=== PATIENT | female | born 1950 | race Caucasian/White ===

== ENCOUNTER 2024-09-13 19:01 | Emergency (ER) | payer OTHER, MEDICARE, SELFPAY ==
--- NOTE | 2024-09-13 19:06 | ED_ITS ---
HPI - General Adult General Chief complaint: Extremity Injury, Lower Stated complaint: left lower leg hematoma Time Seen by Provider: 09/13/24 21:15 Source: patient Mode of arrival: ambulatory History of Present Illness ED Provider: mago HPI narrative: Patient's on Coumadin apparently hit her left quintero to a wood rung of the chair yesterday got hematoma complaining of pain in the area also oozing clear fluid from small opening at left lower extremity patient does have a CHF with chronic Related Data Allergies Allergy/AdvReac Type Severity Reaction Status Date / Time acetaminophen [From TYLOX] Allergy Unknown HALLUCINATIONS, Verified 09/13/24 19:09 VOMITING chlorpheniramine Allergy Unknown HIVES Verified 09/13/24 19:09 [From CONTAC] guaifenesin [From CONTAC] Allergy Unknown HIVES Verified 09/13/24 19:09 ibuprofen [From MOTRIN] Allergy Unknown HEART Verified 09/13/24 19:09 PALPITATION From CONTAC Allergy Unknown HIVES Uncoded 07/03/20 16:48 From TYLOX Allergy Unknown HALLUCINATIONS, Uncoded 07/03/20 16:48 VOMITING Review of Systems 2 Review of Systems: Yes all other systems are reviewed and are negative PENDING SALE TO [facility] Social History Social History Advance Directives: No Advance Directives Information Provided: No Physical Exam ED Vital Signs: Vital Signs - 24 hr 09/13/24 19:07 Temperature 98.3 F Pulse Rate 85 Respiratory Rate 18 Blood Pressure 148/68 H Pulse Oximetry 95 Oxygen Delivery Method Room Air BMI result Body Mass Index 22.3 Appearance: Alert. Oriented X3. No acute distress. Eyes: PERRLA, No Nystagmus ENT: Pharynx normal. Oral Mucosa moist Neck: Normal inspection. Neck supple. CVS: Normal heart rate and rhythm. Pulses normal. valve click + Respiratory: No respiratory distress. Equal air entry bilateral, no wheezing/rales/rhonchi Abdomen: Soft and nontender. Bowel sounds are present, no mass palpable, no CVA tenderness Skin: Skin warm and dry. Normal skin color. Normal skin turgor. Extremities: 2+ lower extremity edema. No calf tenderness 2 x 2 cm hematoma on left lower extremity Neuro: Oriented X 3. No motor deficit. No sensory deficit.No cerebellar signs , cranial nerves II-XII intact Course Course Course Narrative: This is a rapid medical exam performed by Daniel Ring NP: Additional HPI, ROS, PE not included below will be deferred to primary provider. Patient is a 73-year-old female with history of afib on warfarin, CHF presenting to the ED with complaint of hematoma to left lower leg. States she hit her left quintero on a wooden chair rung yesterday which caused the hematoma. Complains of pain to the area, states it feels like it's going to burst. Also has pinpoint puncture wound to medial aspect of left ankle draining clear fluid. Plan: labs Medical Decision Making Medical Decision Making MDM Narrative: Small hematoma to left lower extremity on Coumadin will puncture was done and small amount of blood was removed pressure dressing applied patient felt better Lab Data [facility] Lab Attestation statement: I reviewed the patient's lab results. 09/13/24 19:18 09/13/24 19:18 Labs: Lab Results 09/13/24 Range/Units 19:18 WBC 7.5 (4.8-10.8) X10*3/uL RBC 3.92 L (4.20-5.50) X10*6/uL Hgb 12.0 (12.0-16.0) g/dl Hct 36.7 L (37.0-47.0) % MCV 93.6 (80.0-98.0) fL MCH 30.6 (27.0-33.0) pg MCHC 32.7 (31.0-35.0) g/dl RDW 21.9 H (11.0-16.0) % Plt Count 288 (160-400) X10*3/uL MPV 10.6 (9.4-12.3) fL Immature Gran % (Auto) 0.1 (0.0-0.4) % Neut % (Auto) 67.7 (45-73) % Lymph % (Auto) 19.9 L (20-40) % [place] % (Auto) 9.2 (2-11) % Eos % (Auto) 2.3 (0-4) % Baso % (Auto) 0.8 (0-2) % Lymph # (Auto) 1.5 (1.2-4.9) X10*3/uL [place] # (Auto) 0.7 (0.1-1.2) X10*3/uL Eos # (Auto) 0.2 (0.0-0.4) X10*3/uL Baso # (Auto) 0.1 (0.0-0.2) X10*3/uL Abs Immat Gran (auto) 0.01 (0.00-0.03) X10*3/uL Absolute Neuts (auto) 5.1 (2.0-8.3) x10*3/uL Absolute Nucleated RBC 0.000 (0.0-0.012) X10*3/uL Nucleated RBC % (auto) 0.0 (0.0-0.2) /100WBC PT 32.1 H (10.9-12.4) SEC INR 2.7 H (0.9-1.1) APTT 41.4 H (26.0-36.8) SEC Sodium 144 (135-145) mmol/L Potassium 3.7 (3.3-5.1) mmol/L Chloride 102 (96-108) mmol/L Carbon Dioxide 32 H (22-29) mmol/L Anion Gap 14 (12-20) BUN 14 (9-16) mg/dL Creatinine 0.88 (0.5-1.4) mg/dL Estim Creat Clear Calc 50.6 Estimated GFR > 60 Random Glucose 124 H (60-115) mg/dL Calcium 9.9 (8.4-10.2) mg/dL Total Bilirubin 0.5 (0.0-1.0) mg/dL AST 36 H (5-31) U/L ALT 37 H (0-31) U/L Alkaline Phosphatase 70 (39-117) U/L Total Protein 7.5 (6.5-8.0) g/dL Albumin 4.6 (3.5-5.0) g/dL Discharge Plan Discharge Clinical Impression: Hematoma Patient Disposition: Home, Self-Care Instructions: Hematoma (ED) Additional Instructions: Local care as advised Apply compression dressing Keep your left leg elevated Print Language: Welsh
[2024-09-13 19:07] VITALS: BP 148/68; PULSE 85; RESP 18; TEMP 36.8; O2SAT 95; BMI 22.3
[2024-09-13 19:22] LABS: MANUAL DIFF FLAG NO
[2024-09-13 19:37] LABS: Alanine Aminotransferase 37 U/L (0-31); Albumin Level 4.6 g/dL (3.5-5.0); Alkaline Phosphatase 70 U/L (39-117); Anion Gap 14 (12-20); Aspartate Amino Transferase 36 U/L (5-31); Bilirubin Total 0.5 mg/dL (0.0-1.0); Blood Urea Nitrogen 14 mg/dL (9-16); Calcium 9.9 mg/dL (8.4-10.2); Carbon Dioxide 32 mmol/L (22-29); Chloride 102 mmol/L (96-108); Creatinine Clr Calc Pharmacy 50.6; Estimated Glomerular Filt Rate > 60; Glucose Random 124 mg/dL (60-115); Potassium 3.7 mmol/L (3.3-5.1); Sodium 144 mmol/L (135-145); Total Protein 7.5 g/dL (6.5-8.0)
[2024-09-13 19:45] LABS: INTERNATIONAL NORM RATIO 2.7 (0.9-1.1); Prothrombin Time 32.1 SEC (10.9-12.4)
[2024-09-13 19:47] LABS: Basophils Absolute Auto 0.1 X10*3/uL (0.0-0.2); Basophils Percent Auto 0.8 % (0-2); Eosinophils Absolute Auto 0.2 X10*3/uL (0.0-0.4); Eosinophils Percent Auto 2.3 % (0-4); Hematocrit 36.7 % (37.0-47.0); Imm Gran Abs Auto 0.01 X10*3/uL (0.00-0.03); Imm Gran Pct Auto 0.1 % (0.0-0.4); Lymphocytes Absolute Auto 1.5 X10*3/uL (1.2-4.9); Lymphocytes Percent Auto 19.9 % (20-40); Mean Corpuscular HGB Conc 32.7 g/dl (31.0-35.0); Mean Corpuscular Hemoglobin 30.6 pg (27.0-33.0); Mean Corpuscular Volume 93.6 fL (80.0-98.0); Mean Platelet Volume 10.6 fL (9.4-12.3); Monocytes Absolute Auto 0.7 X10*3/uL (0.1-1.2); Monocytes Percent Auto 9.2 % (2-11); Neutrophils Absolute Auto 5.1 x10*3/uL (2.0-8.3); Neutrophils Percent Auto 67.7 % (45-73); Platelet Count 288 X10*3/uL (160-400); Red Blood Count 3.92 X10*6/uL (4.20-5.50); Red Cell Distribution Width 21.9 % (11.0-16.0); White Blood Count 7.5 X10*3/uL (4.8-10.8)
[2024-09-13 19:48] LABS: Partial Thromboplastin Time 41.4 SEC (26.0-36.8)
[2024-09-13 22:11] VITALS: BP 128/70; PULSE 95; RESP 16; TEMP 36.9; O2SAT 94
[2024-09-13 22:25] VITALS: BP 128/70; PULSE 95; RESP 16; TEMP 36.9; O2SAT 94
== END 2024-09-13 22:26 | disposition home or self-care (01) ==
PROVIDERS: Registered Nurse Emergency; Emergency Provider Internal Medicine
DX: S80.12XA Contusion of left lower leg, initial encounter (principal); W22.03XA Walked into furniture, initial encounter; R60.0 Localized edema; Y93.9 Activity, unspecified; Y92.039 Unspecified place in apartment as the place of occurrence of the external cause; Y99.9 Unspecified external cause status
CPT/HCPCS: 36415; 80053; 85025; 85610; 85730; 99283

== ENCOUNTER 2024-10-03 12:54 | Emergency (ER) | payer OTHER, MEDICARE, SELFPAY ==
--- NOTE | ~2024-10-03 | US_ITS ---
EXAMINATION: US TRIPLEX LOWER EXTREMITY, LEFT CLINICAL INFORMATION: Left leg edema, infection, rule out DVT COMPARISON: None available. TECHNIQUE: Color-flow triplex imaging with spectral analysis and compression Doppler were performed on the left lower extremity. FINDINGS: Respiratory variation, normal compression and augmented flow are noted throughout the left lower extremity. The visualized common femoral vein, superficial femoral vein, profunda femoral vein, popliteal vein and midcalf peroneal and posterior tibial venous segments show no evidence of deep venous thrombosis. There is no Mancilla's cyst. US/US venous duplex LE LT IMPRESSION: No evidence of deep venous thrombosis involving the left lower extremity. Electronically signed by: Bronson Shepherd MD 10/03/2024 04:21 PM EST
--- NOTE | 2024-10-03 12:57 | ED_ITS ---
HPI - General Adult General Chief complaint: Skin/Abscess/Foreign Body Stated complaint: L Leg Infection Nausea Not Feeling Well Time Seen by Provider: 10/03/24 14:35 Source: patient Limitations: no limitations History of Present Illness ED Provider: Susy Sharp PA-C HPI narrative: 73-year-old female with a history of AFib, artificial valve replacement of the mitral valve and aortic valve, on Coumadin, systolic heart failure, hypertension, hyperlipidemia and osteoarthritis, presents with left lower extremity swelling x2 days. Patient states she bumped her quintero on Thanksgiving, she developed a hematoma. Over the past 2 days, the hematoma ruptured, and she has developed extensive redness over the quintero and calf. Patient states she feels as if she has a fever, but when she checks her temperature it is normal. Related Data Previous Rx's ?Medication ?Instructions ?Recorded doxycycline hyclate 100 mg capsule 100 mg PO BID #14 caps 10/03/24 Allergies Allergy/AdvReac Type Severity Reaction Status Date / Time acetaminophen [From TYLOX] Allergy Unknown HALLUCINATIONS, Verified 10/03/24 13:06 VOMITING chlorpheniramine Allergy Unknown HIVES Verified 10/03/24 13:06 [From CONTAC] guaifenesin [From CONTAC] Allergy Unknown HIVES Verified 10/03/24 13:06 ibuprofen [From MOTRIN] Allergy Unknown HEART Verified 10/03/24 13:06 PALPITATION From CONTAC Allergy Unknown HIVES Uncoded 07/03/20 16:48 From TYLOX Allergy Unknown HALLUCINATIONS, Uncoded 07/03/20 16:48 VOMITING Review of Systems 2 Review of Systems: Yes all other systems are reviewed and are negative Constitutional: Constitutional: Reports chills, Denies fatigue and Reports fever(s) Cardiovascular: Cardiovascular: Denies chest pain and Denies dyspnea Respiratory: Respiratory: Denies dyspnea Musculoskeletal: Musculoskeletal: Denies arthralgias, Denies joint swelling, Denies numbness and Denies tingling Neurologic: Denies numbness and Denies tingling Endocrine: Endocrine: Denies fatigue PMFSH Past Medical History Attestation statement: The following information was validated with the patient. Social History Social History Smoked in Last 30 Days: No Use of substances other than those prescribed or required for medical reasons: No Advance Directives: No Advance Directives Information Provided: Yes Do you have a plan to hurt others: No Plan Physical Exam ED Vital Signs: Vital Signs - 24 hr 10/03/24 12:59 10/03/24 15:19 10/03/24 17:39 Temperature 98.1 F 98.4 F Pulse Rate 64 52 52 Respiratory Rate 16 16 18 Blood Pressure 160/80 H 140/81 H 135/78 Pulse Oximetry 96 94 94 Oxygen Delivery Method Room Air Room Air Room Air BMI result Body Mass Index 22.4 Const Other: Alert, well-appearing Orientation/consciousness: patient oriented x3 Resp Other: Nonlabored respirations Cardio Other: Pending edema noted bilaterally, left greater than right Skin Other: Warm dry no rash Neuro General: patient oriented x3, no focal motor deficits and CN's II-XI intact bilaterally Extrem Other: Erythema and warmth noted over the left lower extremity from the ankle to just inferior to the knee, the hematomas no longer present, the skin looks somewhat ulcerated, no active bleeding. Psych Other: Calm cooperative Course Course Course Narrative: RME, this is a rapid medical exam performed by Geovani Owens please refer to primary provider for complete H&P- 73-year-old female with past medical history significant for atrial fibrillation maintained on Coumadin presents for evaluation of left leg swelling and redness. She was seen here a few weeks ago due to a hematoma. She had this drained. She has had increasing pain, swelling and redness since yesterday to the left lower extremity. She does admit that she has been picking at the wounds to the left lower leg. She reports subjective fevers and chills as well as nausea. On exam the left lower extremity is markedly erythematous with some edema. Plan for labs including blood cultures and lactic acid. Medications Administered Discontinued Medications Generic Name Dose Route Start Last Admin Trade Name Freq PRN Reason Stop Dose Admin Doxycycline Hyclate 100 mg/ 250 mls @ 166.67 mls/hr 10/03/24 14:42 10/03/24 16:51 Sodium Chloride IV 10/03/24 16:11 Infused ONCE ONE Infusion Lidocaine/Epinephrine 10 ml 10/03/24 17:37 10/03/24 18:00 Lidocaine Hcl 1%/Epi 1:100,000 10 Ml Vial INFILTRATI 10/03/24 17:38 10 ml ONCE ONE Administration Procedures Abscess I/D Site: lower extremity Side (if applicable): left Sedation/analgesia: none Local Anesthetic: lidocaine 1% and with epi Amount of anesthesia used (mL): 10 Technique: incised with blade and ultrasound guided Amount of fluid expressed (mL): 2 Sent for culture/gram staining?: No Irrigation: No Packing used?: iodoform Medical Decision Making Medical Decision Making MDM Narrative: 73-year-old female with a history of AFib, artificial valve replacement of the mitral valve and aortic valve, on Coumadin, systolic heart failure, hypertension, hyperlipidemia and osteoarthritis, presents with left lower extremity swelling x2 days. Patient states she bumped her quintero on Thanksgiving, she developed a hematoma. Over the past 2 days, the hematoma ruptured, and she has developed extensive redness over the quintero and calf. Patient states she feels as if she has a fever, but when she checks her temperature it is normal. Problem: Anticoagulation, History: Per patient I have considered the following differential diagnoses: Cellulitis, purulent cellulitis, osteomyelitis, DVT Plan: We will obtain a DVT, she had a traumatic injury and now has an infection. I will view the site of the prior hematoma with bedside ultrasound to see if there is a focal abscess to be drained, I have low suspicion for this. Screening labs including blood cultures were already obtained, we will give her doxycycline. I am adding on inflammatory markers and a lactic acid. The wound is superficial, I have low suspicion for osteomyelitis, she is not immunocompromised or diabetic, I do not believe we need to obtain dedicated x- rays to rule this out. I have viewed the limb with the ultrasound, there was a fluid collection, unclear if it is abscess versus hematoma, we will I and D. I have independently reviewed the following tests: Labs: No leukocytosis, not anemic, no electrolyte abnormality, lactic acid 0.7, CRP 2.23, ESR DVT left lower extremity study: US/US venous duplex LE LT IMPRESSION: No evidence of deep venous thrombosis involving the left lower extremity. Lab Data 10/03/24 13:21 10/03/24 13:21 Labs: Lab Results 10/03/24 10/03/24 10/03/24 Range/Units 13:21 15:08 15:09 WBC 9.5 (4.8-10.8) X10*3/uL RBC 3.72 L (4.20-5.50) X10*6/uL Hgb 11.9 L (12.0-16.0) g/dl Hct 36.3 L (37.0-47.0) % MCV 97.6 (80.0-98.0) fL MCH 32.0 (27.0-33.0) pg MCHC 32.8 (31.0-35.0) g/dl RDW 18.7 H (11.0-16.0) % Plt Count 279 (160-400) X10*3/uL MPV 10.7 (9.4-12.3) fL Immature Gran % (Auto) 0.4 (0.0-0.4) % Neut % (Auto) 80.9 H (45-73) % Lymph % (Auto) 11.4 L (20-40) % [place] % (Auto) 6.0 (2-11) % Eos % (Auto) 0.8 (0-4) % Baso % (Auto) 0.5 (0-2) % Lymph # (Auto) 1.1 L (1.2-4.9) X10*3/uL [place] # (Auto) 0.6 (0.1-1.2) X10*3/uL Eos # (Auto) 0.1 (0.0-0.4) X10*3/uL Baso # (Auto) 0.1 (0.0-0.2) X10*3/uL Abs Immat Gran (auto) 0.04 H (0.00-0.03) X10*3/uL Absolute Neuts (auto) 7.7 (2.0-8.3) x10*3/uL Absolute Nucleated RBC 0.000 (0.0-0.012) X10*3/uL Nucleated RBC % (auto) 0.0 (0.0-0.2) /100WBC ESR 10 (0-20) MM/HR PT 23.5 H D (10.9-12.4) SEC INR 2.0 H (0.9-1.1) Sodium 141 (135-145) mmol/L Potassium 3.8 (3.3-5.1) mmol/L Chloride 102 (96-108) mmol/L Carbon Dioxide 33 H (22-29) mmol/L Anion Gap 10 L (12-20) BUN 13 (9-16) mg/dL Creatinine 0.63 (0.5-1.4) mg/dL Estim Creat Clear Calc 70.7 Estimated GFR > 60 Random Glucose 106 (60-115) mg/dL Lactic Acid 0.7 0.7 (0.5-2.0) mmol/L Calcium 8.9 D (8.4-10.2) mg/dL Total Bilirubin 0.6 (0.0-1.0) mg/dL AST 37 H (5-31) U/L ALT 36 H (0-31) U/L Alkaline Phosphatase 80 (39-117) U/L C-Reactive Protein 2.23 H (< or = 0.50) mg/dL Total Protein 7.9 (6.5-8.0) g/dL Albumin 4.6 (3.5-5.0) g/dL Lipase 16 (8-78) U/L Influenza Type A (PCR) NEGATIVE (Negative) Influenza Type B (PCR) NEGATIVE (Negative) RSV RNA Qual (PCR) NEGATIVE (Negative) SARS-CoV-2 RNA (RT-PCR) NEGATIVE (Negative) Discharge Plan Discharge Clinical Impression: Cellulitis of left leg Patient Disposition: Home, Self-Care Instructions: Cellulitis (ED) Additional Instructions: You are being treated for cellulitis. See home care instructions. Keep the site clean and dry. Take the doxycycline as directed. The area every you have the hematoma was incised and drained, there was concerned for underlying abscess formation, it was more hematoma. Return precaution for the onset of fever, swelling at the hematoma site, pus draining from the site, or red line tracking up your leg. Otherwise, follow up with your primary care provider next week for a wound check. Prescriptions: New doxycycline hyclate 100 mg capsule 100 mg PO BID Qty: 14 0RF Print Language: Romanian
[2024-10-03 12:59] VITALS: BP 160/80; PULSE 64; RESP 16; TEMP 36.7; O2SAT 96; BMI 22.4
[2024-10-03 13:33] LABS: MANUAL DIFF FLAG NO
[2024-10-03 13:40] LABS: Basophils Absolute Auto 0.1 X10*3/uL (0.0-0.2); Basophils Percent Auto 0.5 % (0-2); Eosinophils Absolute Auto 0.1 X10*3/uL (0.0-0.4); Eosinophils Percent Auto 0.8 % (0-4); Hematocrit 36.3 % (37.0-47.0); Hemoglobin 11.9 g/dl (12.0-16.0); Imm Gran Abs Auto 0.04 X10*3/uL (0.00-0.03); Imm Gran Pct Auto 0.4 % (0.0-0.4); Lymphocytes Absolute Auto 1.1 X10*3/uL (1.2-4.9); Lymphocytes Percent Auto 11.4 % (20-40); Mean Corpuscular HGB Conc 32.8 g/dl (31.0-35.0); Mean Corpuscular Volume 97.6 fL (80.0-98.0); Mean Platelet Volume 10.7 fL (9.4-12.3); Monocytes Absolute Auto 0.6 X10*3/uL (0.1-1.2); Neutrophils Absolute Auto 7.7 x10*3/uL (2.0-8.3); Neutrophils Percent Auto 80.9 % (45-73); Platelet Count 279 X10*3/uL (160-400); Red Blood Count 3.72 X10*6/uL (4.20-5.50); Red Cell Distribution Width 18.7 % (11.0-16.0); White Blood Count 9.5 X10*3/uL (4.8-10.8)
[2024-10-03 13:43] LABS: Prothrombin Time 23.5 SEC (10.9-12.4)
[2024-10-03 13:47] LABS: Lactic Acid 0.7 mmol/L (0.5-2.0)
[2024-10-03 13:52] LABS: Alanine Aminotransferase 36 U/L (0-31); Albumin Level 4.6 g/dL (3.5-5.0); Alkaline Phosphatase 80 U/L (39-117); Anion Gap 10 (12-20); Aspartate Amino Transferase 37 U/L (5-31); Bilirubin Total 0.6 mg/dL (0.0-1.0); Blood Urea Nitrogen 13 mg/dL (9-16); Calcium 8.9 mg/dL (8.4-10.2); Carbon Dioxide 33 mmol/L (22-29); Chloride 102 mmol/L (96-108); Creatinine Clr Calc Pharmacy 70.7; Estimated Glomerular Filt Rate > 60; Glucose Random 106 mg/dL (60-115); Lipase 16 U/L (8-78); Potassium 3.8 mmol/L (3.3-5.1); Sodium 141 mmol/L (135-145); Total Protein 7.9 g/dL (6.5-8.0)
[2024-10-03 14:23] LABS: Influenza A PCR NEGATIVE (Negative); Influenza B PCR NEGATIVE (Negative); Resp Syncy Virus RNA Qual PCR NEGATIVE (Negative); SARS COV2 PCR INHOUSE NEGATIVE (Negative)
[2024-10-03] MEDS: Doxycycline Hyclate 100 MG in 0.9 % Sodium Chloride 250 ML 166.67 MG IV (15:16)
[2024-10-03 15:19] VITALS: BP 140/81; PULSE 52; RESP 16; O2SAT 94
[2024-10-03 15:31] LABS: C Reactive Protein 2.23 mg/dL (< or = 0.50)
[2024-10-03 15:33] LABS: Lactic Acid 0.7 mmol/L (0.5-2.0)
--- NOTE | 2024-10-03 15:51 | PC.NURSE ---
pt is alert and oriented, skin pwd, respirations even and unlabored, pt reports that the day before Thanksgiving hit her left lower leg on a chair-had a large hematome to that leg-pt is taking blood thinners(Coumadin) was picking at the scab and now there is a small wound discoloration/redness to the entire leg all the way up to the knee, warm to touch and swelling, pt states its not painful at rest but once starts moving the pain starts,
[2024-10-03 16:37] LABS: Erythrocyte Sedimentation Rate 10 MM/HR (0-20)
[2024-10-03 17:39] VITALS: BP 135/78; PULSE 52; RESP 18; TEMP 36.9; O2SAT 94
[2024-10-03] MEDS: Lidocaine HCl 1%/Epi 1:100,000 10 ML VIAL INFILTRATI (18:00)
[2024-10-03 18:12] VITALS: BP 131/60; PULSE 57; RESP 20; TEMP 36.9; O2SAT 94
[2024-10-03 18:42] VITALS: BP 131/60; PULSE 57; RESP 20; TEMP 36.9; O2SAT 94
== END 2024-10-03 18:42 | disposition home or self-care (01) ==
PROVIDERS: Physician Assistant; Physician Assistant Medical; Emergency Provider Emergency Medicine; PCP Internal Medicine
DX: L03.116 Cellulitis of left lower limb (principal); R60.0 Localized edema; R50.9 Fever, unspecified; Z03.818 Encounter for observation for suspected exposure to other biological agents ruled out; Z79.899 Other long term (current) drug therapy
CPT/HCPCS: 0241U; 10061; 80053; 83605; 83690; 85025; 85610; 85652; 86140; 87040; 93971; 96365; 96366; 99284; J2004

== ENCOUNTER 2024-10-04 12:17 | Emergency (ER) | payer OTHER, MEDICARE, SELFPAY ==
[2024-10-04 12:19] VITALS: BP 165/66; PULSE 66; RESP 18; TEMP 36.8; O2SAT 95; BMI 22.3
--- NOTE | 2024-10-04 12:20 | ED.WOUNDLAC ---
HPI - Wound/Laceration General Chief Complaint: General Medical Stated Complaint: Seen yesterday - told to return Time Seen by Provider: 10/04/24 12:48 Source: patient and RN notes reviewed Mode of arrival: ambulatory Limitations: no limitations History of Present Illness ED Provider: Park Thomas PA-C HPI narrative: This is a 73-year-old female, with a history of AFib anticoagulated on Coumadin, artificial valve replacement of the mitral valve, aortic valve, systolic heart failure, hypertension, hyperlipidemia, and osteoarthritis, who presents emergency department due to left lower leg wound. Patient was initially seen after bumping her left lower leg on . She states that she had a hematoma after bumping her leg. This area was drained on September 13, 2024. She states that the hematoma then again filled up with fluid. She states that 2 days ago she had attempted to drain the hematoma herself. She states that yesterday she noticed increased swelling, pain, and redness of her leg therefore she was seen in the emergency department. While in the emergency room, she had an ultrasound which revealed no DVT. She also had an incision and drainage of this hematoma and was packed. She states that this morning she awoke in her dressing was saturated with blood, and did not have any other products to help dressed the wound. She states that the redness has improved since yesterday. She states that she took her 1st dose of doxycycline this morning. Her INR levels are managed through [facility]. She denies any fevers or chills. Denies any increased pain. She states that the pain has improved since yesterday. No other complaints or concerns at this time. Onset (ago): day(s) Place: home Patient tetanus UTD: Yes Context: accidental Associated symptoms: none Related Data Previous Rx's ?Medication ?Instructions ?Recorded doxycycline hyclate 100 mg capsule 100 mg PO BID #14 caps 10/03/24 Allergies Allergy/AdvReac Type Severity Reaction Status Date / Time acetaminophen [From TYLOX] Allergy Unknown HALLUCINATIONS, Verified 10/04/24 12:25 VOMITING chlorpheniramine Allergy Unknown HIVES Verified 10/04/24 12:25 [From CONTAC] guaifenesin [From CONTAC] Allergy Unknown HIVES Verified 10/04/24 12:25 ibuprofen [From MOTRIN] Allergy Unknown HEART Verified 10/04/24 12:25 PALPITATION From CONTAC Allergy Unknown HIVES Uncoded 07/03/20 16:48 From TYLOX Allergy Unknown HALLUCINATIONS, Uncoded 07/03/20 16:48 VOMITING Review of Systems Review of Systems: Yes all other systems are reviewed and are negative Constitutional: Constitutional: Reports as per [facility] Social History Social History Advance Directives: No Advance Directives Information Provided: Yes Do you have a plan to hurt others: No Plan Physical Exam Vital Signs: Vital Signs: Last Vital Signs Temp 98.2 F 10/04/24 13:38 Pulse 66 10/04/24 13:38 Resp 18 10/04/24 13:38 BP 165/66 H 10/04/24 13:38 Pulse Ox 95 10/04/24 13:38 O2 Del Method Room Air 10/04/24 13:38 BMI result Body Mass Index 22.3 Const: General: cooperative, comfortable and no acute distress Orientation/consciousness: patient oriented x3 Limitations: no limitations HEENT: Head: Yes normal to inspection, Yes normocephalic and Yes atraumatic Ears: hearing grossly normal bilaterally General nose exam: Normal external nose present Face and sinus: Yes normal facial exam Mouth: Normal oral and palatal mucosa present, oropharynx normal and moist mucous membranes Throat: Yes posterior oropharynx normal Eyes: General: appearance normal, both eyes and all related structures Eyelids: Yes eyelids normal Conjunctivae: conjunctivae normal Sclerae: sclerae normal Pupils: Equal, round and reactive pupils present EOM: EOMs intact bilaterally Neck: Neck: Yes normal visual inspection, Yes full ROM and Yes no lymphadenopathy Lymphatic: no lymphadenopathy noted Chest: Chest palpation & inspection: normal inspection of the chest Resp: Effort & Inspection: normal respiratory effort and able to speak in complete sentences Auscultation: clear to auscultation bilaterally, no crackles, no rales, no rhonchi and no wheezes Cardio: Rate: regular rate Rhythm: regular rhythm Heart sounds: S1 normal heart sound present and S2 normal heart sound present GI: Inspection: Yes normal to inspection Skin: General skin exam: no rashes or lesions noted Trauma: no lacerations or abrasions Wounds: no wounds Neuro: General: patient oriented x3 and moves all extremities Cranial nerves: Yes Equal, round and reactive pupils present Extrem: Other: Left leg, with mild warmth, scant erythema noted, nontender surrounding wound, packing in place. No excessive bleeding or drainage from the wound. No calf tenderness. Leg is well perfused. Strong DP pulse General: Yes normal to inspection Right upper extremity: normal to inspection Left upper extremity: normal to inspection Right lower extremity: normal to inspection Left lower extremity: normal to inspection Course Course Course Narrative: This is a Rapid Medical Examination (RME) performed by Mike Gomez PA-C in triage. Full HPI, ROS, assessment and treatment plan per primary provider in the Main ED. 73-year-old female with a history of AFib, artificial valve replacement of the mitral valve and aortic valve, on Coumadin, systolic heart failure, hypertension, hyperlipidemia and osteoarthritis who was seen here yesterday for LLE cellulitis sent home with doxycycline and packing in a wound presents back for bleeding and watery drainage from the wound on her leg. saturated dressing w/ bloody/serous drainage, dressing changed in triage, packing in place. ABD applied w/ kerlex Plan: labs, wound check Medical Decision Making Medical Decision Making [facility] Narrative: This is a 73-year-old female who presents emergency department for evaluation of wound. On arrival, patient mildly hypertensive at 165/66, all other vital signs within normal limits. Labs were performed, she has no leukocytosis, H&H is 11/33.6, similar to previous. INR is 2.1 today, patient states that her goal is between 2.5 and 3.5. This is managed through her [facility] through [facility]. She will call them today. AST and ALT are slightly elevated which is similar to previous. Wound appears to be well healed, patient states that the area of redness has improved. She is feeling better however reports increased drainage to the area and she did not have any products to cover wound with. Patient's wound was redressed, she was given products to help dressed the wound, she will return here in 24-48 hours for wound check as she feels more comfortable with wick removal rather than doing it herself. She was given strict return precautions. Patient stable for discharge. Differential Diagnosis Differential Diagnoses: The differential diagnosis associated with the presentation includes Cellulitis, laceration, wound check, abscess Lab Data [facility] Lab Attestation statement: I reviewed the patient's lab results. See [facility] 10/04/24 12:31 10/04/24 12:31 Labs: Lab Results 10/04/24 Range/Units 12:31 WBC 8.4 (4.8-10.8) X10*3/uL RBC 3.47 L (4.20-5.50) X10*6/uL Hgb 11.0 L (12.0-16.0) g/dl Hct 33.6 L (37.0-47.0) % MCV 96.8 (80.0-98.0) fL MCH 31.7 (27.0-33.0) pg MCHC 32.7 (31.0-35.0) g/dl RDW 18.4 H (11.0-16.0) % Plt Count 249 (160-400) X10*3/uL MPV 10.4 (9.4-12.3) fL Immature Gran % (Auto) 0.2 (0.0-0.4) % Neut % (Auto) 73.9 H (45-73) % Lymph % (Auto) 15.1 L (20-40) % [place] % (Auto) 8.4 (2-11) % Eos % (Auto) 1.7 (0-4) % Baso % (Auto) 0.7 (0-2) % Lymph # (Auto) 1.3 (1.2-4.9) X10*3/uL [place] # (Auto) 0.7 (0.1-1.2) X10*3/uL Eos # (Auto) 0.1 (0.0-0.4) X10*3/uL Baso # (Auto) 0.1 (0.0-0.2) X10*3/uL Abs Immat Gran (auto) 0.02 (0.00-0.03) X10*3/uL Absolute Neuts (auto) 6.2 (2.0-8.3) x10*3/uL Absolute Nucleated RBC 0.000 (0.0-0.012) X10*3/uL Nucleated RBC % (auto) 0.0 (0.0-0.2) /100WBC PT 24.8 H (10.9-12.4) SEC INR 2.1 H (0.9-1.1) Sodium 141 (135-145) mmol/L Potassium 4.1 (3.3-5.1) mmol/L Chloride 105 (96-108) mmol/L Carbon Dioxide 30 H (22-29) mmol/L Anion Gap 10 L (12-20) BUN 9 (9-16) mg/dL Creatinine 0.69 (0.5-1.4) mg/dL Estim Creat Clear Calc 64.5 Estimated GFR > 60 Random Glucose 109 (60-115) mg/dL Calcium 9.5 D (8.4-10.2) mg/dL Magnesium 2.2 (1.6-2.6) mg/dL Total Bilirubin 0.6 (0.0-1.0) mg/dL Direct Bilirubin 0.3 (0.0-0.5) mg/dL AST 38 H (5-31) U/L ALT 36 H (0-31) U/L Alkaline Phosphatase 71 (39-117) U/L Total Protein 7.2 (6.5-8.0) g/dL Albumin 4.3 (3.5-5.0) g/dL Discharge Plan Discharge Clinical Impression: Visit for wound check Patient Disposition: Home, Self-Care Instructions: Acute Wounds (ED) Additional Instructions: You were seen in the emergency department due to a wound check. Please keep area clean and dry. We had given you products to use if this continues to drain. If you have increased redness, swelling, fevers, chills, excessive bleeding coming from the wound, please seek emergent care. Please follow-up for a wound check in 1-2 days, we can move your packing then. Your INR was 2.1 today, please follow-up with the [facility]mad[facility] for recommendations. If any new or worsening symptoms occur, please seek emergent care. Prescriptions: No Action doxycycline hyclate 100 mg capsule 100 mg PO BID Qty: 14 0RF Interventions: ED Discharge Assessment Last Done: 10/04/24 13:38 Print Language: Kazakh
[2024-10-04 12:37] LABS: MANUAL DIFF FLAG NO
[2024-10-04 12:38] LABS: Basophils Absolute Auto 0.1 X10*3/uL (0.0-0.2); Basophils Percent Auto 0.7 % (0-2); Eosinophils Absolute Auto 0.1 X10*3/uL (0.0-0.4); Eosinophils Percent Auto 1.7 % (0-4); Hematocrit 33.6 % (37.0-47.0); Imm Gran Abs Auto 0.02 X10*3/uL (0.00-0.03); Imm Gran Pct Auto 0.2 % (0.0-0.4); Lymphocytes Absolute Auto 1.3 X10*3/uL (1.2-4.9); Lymphocytes Percent Auto 15.1 % (20-40); Mean Corpuscular HGB Conc 32.7 g/dl (31.0-35.0); Mean Corpuscular Hemoglobin 31.7 pg (27.0-33.0); Mean Corpuscular Volume 96.8 fL (80.0-98.0); Mean Platelet Volume 10.4 fL (9.4-12.3); Monocytes Absolute Auto 0.7 X10*3/uL (0.1-1.2); Monocytes Percent Auto 8.4 % (2-11); Neutrophils Absolute Auto 6.2 x10*3/uL (2.0-8.3); Neutrophils Percent Auto 73.9 % (45-73); Platelet Count 249 X10*3/uL (160-400); Red Blood Count 3.47 X10*6/uL (4.20-5.50); Red Cell Distribution Width 18.4 % (11.0-16.0); White Blood Count 8.4 X10*3/uL (4.8-10.8)
[2024-10-04 12:46] LABS: INTERNATIONAL NORM RATIO 2.1 (0.9-1.1); Prothrombin Time 24.8 SEC (10.9-12.4)
[2024-10-04 12:56] LABS: Alanine Aminotransferase 36 U/L (0-31); Albumin Level 4.3 g/dL (3.5-5.0); Alkaline Phosphatase 71 U/L (39-117); Anion Gap 10 (12-20); Aspartate Amino Transferase 38 U/L (5-31); Bilirubin Direct 0.3 mg/dL (0.0-0.5); Bilirubin Total 0.6 mg/dL (0.0-1.0); Blood Urea Nitrogen 9 mg/dL (9-16); Calcium 9.5 mg/dL (8.4-10.2); Carbon Dioxide 30 mmol/L (22-29); Chloride 105 mmol/L (96-108); Creatinine Clr Calc Pharmacy 64.5; Estimated Glomerular Filt Rate > 60; Glucose Random 109 mg/dL (60-115); Magnesium 2.2 mg/dL (1.6-2.6); Potassium 4.1 mmol/L (3.3-5.1); Sodium 141 mmol/L (135-145); Total Protein 7.2 g/dL (6.5-8.0)
[2024-10-04 13:38] VITALS: BP 165/66; PULSE 66; RESP 18; TEMP 36.8; O2SAT 95
== END 2024-10-04 14:11 | disposition home or self-care (01) ==
PROVIDERS: Physician Assistant; Emergency Provider Emergency Medicine Emergency Medical Services; PCP Internal Medicine
DX: Z48.01 Encounter for change or removal of surgical wound dressing (principal); I48.91 Unspecified atrial fibrillation; Z79.01 Long term (current) use of anticoagulants
CPT/HCPCS: 36415; 80048; 80076; 83735; 85025; 85610; 99282; 99283

== ENCOUNTER 2024-10-06 11:08 | Emergency (ER) | payer OTHER, MEDICARE, SELFPAY ==
[2024-10-06 11:17] VITALS: BP 151/82; PULSE 83; RESP 16; TEMP 37.1; O2SAT 96; BMI 22.3
--- NOTE | 2024-10-06 11:19 | ED_ITS ---
HPI - Skin/Abscess/Foreign Bdy General Chief complaint: Wound/Laceration Stated complaint: packing removal Time Seen by Provider: 10/06/24 11:27 Source: patient, RN notes reviewed and old records reviewed Mode of arrival: ambulatory History of Present Illness ED Provider: Dionna Millan PA-C HPI narrative: 73-year-old female with a past medical history AFib on Coumadin, artificial valve replacement of the mitral valve, aortic valve, CHF, HTN, HLD, osteoarthritis, presenting to ED for packing removal and wound check to left lower extremity. Patient initially evaluated in our ED on [facility] s/p sustaining hematoma, area was drained on 09/13 and 10/03. Was then evaluated for wound check on 10/04. Reports compliance with previously prescribed doxycycline. States area overall improved. Denies fever, chills, active drainage, worsening erythema Related Data Previous Rx's ?Medication ?Instructions ?Recorded doxycycline hyclate 100 mg capsule 100 mg PO BID #14 caps 10/03/24 cephalexin 500 mg capsule 500 mg PO QID 7 days #28 caps 10/06/24 Allergies Allergy/AdvReac Type Severity Reaction Status Date / Time acetaminophen [From TYLOX] Allergy Unknown HALLUCINATIONS, Verified 10/06/24 11:20 VOMITING chlorpheniramine Allergy Unknown HIVES Verified 10/06/24 11:20 [From CONTAC] guaifenesin [From CONTAC] Allergy Unknown HIVES Verified 10/06/24 11:20 ibuprofen [From MOTRIN] Allergy Unknown HEART Verified 10/06/24 11:20 PALPITATION From CONTAC Allergy Unknown HIVES Uncoded 10/06/24 11:20 From TYLOX Allergy Unknown HALLUCINATIONS, Uncoded 10/06/24 11:20 VOMITING Review of Systems 2 Review of Systems: Yes all other systems are reviewed and are negative Constitutional: Constitutional: Reports as per [facility] Past Medical History Attestation statement: The following information was validated with the patient. Source: old records reviewed Physical Exam 2 Vital Signs: Vital Signs: Last Vital Signs Temp 98.7 F 10/06/24 11:17 Pulse 83 10/06/24 11:17 Resp 16 10/06/24 11:17 BP 151/82 H 10/06/24 11:17 Pulse Ox 96 10/06/24 11:17 O2 Del Method Room Air 10/06/24 11:17 BMI result Body Mass Index 22.3 Const: General: cooperative, healthy appearing and no acute distress O rientation/consciousness: patient oriented x3 Limitations: no limitations HEENT: Head: Yes normal to inspection and Yes atraumatic Ears: hearing grossly normal bilaterally General nose exam: Normal external nose present Face and sinus: Yes normal facial exam Eyes: General: appearance normal, both eyes and all related structures EOM: EOMs intact bilaterally Neck: Neck: Yes normal visual inspection and Yes no meningeal signs Resp: Effort & Inspection: normal respiratory effort and no respiratory distress Cardio: Rate: regular rate Skin: Other: Please refer to image above. Healing wound, packing removed. Mild surrounding swelling and faint erythema, improving per patient, no warmth. Slight tenderness. No fluctuance/induration or expressible drainage. Neurovascularly intact distally. Rashes: no rashes Neuro: General: patient oriented x3, tone normal and no meningeal signs C ranial nerves: Yes CN's II-XII intact bilaterally Gait exam (Neuro): Normal gait present Extrem: General: Yes normal to inspection Medical Decision Making Medical Decision Making MDM Narrative: 73-year-old female with a past medical history AFib on Coumadin, artificial valve replacement of the mitral valve, aortic valve, CHF, HTN, HLD, osteoarthritis, presenting to ED for packing removal and wound check to left lower extremity. On exam vital signs stable, NAD, nontoxic appearing, physical exam as noted above, please refer to image. Packing removed. Wound appears appropriately healing. Recommended wound care follow-up, continuing previously prescribed doxycycline and will add Keflex to her regimen. Low suspicion for worsening cellulitis or osteomyelitis at this time. No evidence of abscess Please refer to course for remaining clinical decision making, interpretation of labs/imaging results, and discussions with consultants and/or family members. Results discussed with patient including worrisome signs and symptoms and strict return precautions, and when to return to the emergency department. They verbalized understanding and feel safe for discharge at this time. Differential Diagnosis Differential Diagnoses: The differential diagnosis associated with the presentation includes As above Admission/Observation Consideration of admission/observation: Escalation of care including admission/observation considered External Record Review External record reviewed: Inpatient record, Office record, Outpatient record, Prior outpatient labs, Prior outpatient radiology, Primary care record and Outside ED record Tests considered The following testing was considered but not selected: As above Prescription Management I considered prescription management with: Pain Medication and Antibiotic Chronic Conditions Patient?s care impacted by: Other Social Determinants Patient?s care significantly limited by Social Determinants of Health including: Other Social Determinant of Health Procedures Procedure Narrative Procedure Narrative: Wound packing removal: Removed without complication Dressing applied Discharge Plan Discharge Clinical Impression: Abscess packing removal, Visit for wound check Patient Disposition: Home, Self-Care Instructions: Wound Infection (DC), Warm Compress or Soak (ED) Additional Instructions: Continue taking previously prescribed doxycycline In addition start taking Keflex. Finish both antibiotics until completion Change dressing daily Apply warm compresses to the area If area begins to look worse, has increasing redness, swelling, drainage or fever return to the ED immediately Follow up with her doctor as well as care. Call to make an appointment Prescriptions: New cephalexin 500 mg capsule 500 mg PO QID 7 Days Qty: 28 0RF No Action doxycycline hyclate 100 mg capsule 100 mg PO BID Qty: 14 0RF Referrals: [facility] [facility] [Provider Group] Gigi Louie MD [Primary Care Provider] - 2 days Print Language: Sudanese
[2024-10-06 11:38] VITALS: BP 151/82; PULSE 83; RESP 16; TEMP 37.1; O2SAT 96
== END 2024-10-06 11:38 | disposition home or self-care (01) ==
PROVIDERS: Emergency Provider Emergency Medicine Emergency Medical Services; PCP Internal Medicine
DX: Z48.01 Encounter for change or removal of surgical wound dressing (principal); L02.416 Cutaneous abscess of left lower limb
CPT/HCPCS: 99282; 99283

== ENCOUNTER 2024-12-19 11:26 | Outpatient (RCR) | payer MEDICARE, OTHER, SELFPAY | END 2024-12-19 16:00 | disposition home or self-care (01) | LOC: HO.WCC 11:26 | PROVIDERS: PCP Internal Medicine; Visit Provider Surgery | DX: I87.332 Chronic venous hypertension (idiopathic) with ulcer and inflammation of left lower extremity (principal); L97.822 Non-pressure chronic ulcer of other part of left lower leg with fat layer exposed | CPT/HCPCS: 11042; 99211; 99212; 99213 ==

== ENCOUNTER 2025-08-07 12:29 | Emergency (ER) | payer MEDICARE, OTHER, SELFPAY ==
--- NOTE | ~2025-08-07 | XR_ITS ---
EXAMINATION: XR TIBIA AND FIBULA, RIGHT CLINICAL INFORMATION: pain, injury, r/o fx COMPARISON: None available. TECHNIQUE: AP and lateral views of the right tibia and fibula were obtained. FINDINGS: No fracture, dislocation, or suspicious bone lesion. There is normal alignment. The imaged ankle and knee joints appear unremarkable. There is soft tissue swelling in the lower anterior quintero. XR/XR tibia fibula RT 2V IMPRESSION: 1. No acute bony abnormality. 2. Soft tissue swelling lower anterior quintero. Electronically signed by: Sukhwinder Chamberlain MD 08/07/2025 01:05 PM EDT
[2025-08-07 12:41] VITALS: BP 102/70; PULSE 88; RESP 18; TEMP 36.7; O2SAT 93; BMI 20.9
--- NOTE | 2025-08-07 12:43 | ED_ITS ---
HPI - General Adult General Chief complaint: Wound/Laceration Stated complaint: blood clot on leg Time Seen by Provider: 08/07/25 13:41 Source: patient Mode of arrival: ambulatory Limitations: no limitations History of Present Illness ED Provider: Bhavya Antoine PA-C HPI narrative: Patient is a 74 year old assigned female at with a history of atrial fib, mitral valve + aortic valve replacements on coumadin, CHF, HTN, HLD, and OA presenting to the emergency department today with a right lower leg injury. Patient states that 3 days ago she took a basketball hit to her right lower leg and has a persistent bruise to the area that is not getting better. Patient states that she called the wound center and has an appointment with them next week. Patient states that she checks her INR at home every Tuesday and her INR the Tuesday before this incident was within range. Patient denies any other complaints at this time. Related Data Previous Rx's ?Medication ?Instructions ?Recorded doxycycline hyclate 100 mg capsule 100 mg PO BID #14 c aps 10/03/24 cephalexin 500 mg capsule 500 mg PO QID 7 days #28 cap s 10/06/24 Allergies Allergy/AdvReac Type Severity Reaction Status Date / Time acetaminophen (From TYLOX) Allergy Unknown HALLUCINATIONS, Verified 08/07/25 12:46 VOMITING chlorpheniramine (From Allergy Unknown HIVES Verified 08/07/25 12:46 CONTAC) guaifenesin (From CONTAC) Allergy Unknown HIVES Verified 08/07/25 12:46 ibuprofen (From MOTRIN) Allergy Unknown HEART Verified 08/07/25 12:46 PALPITATION From CONTAC Allergy Unknown HIVES Uncoded 10/06/24 11:20 From TYLOX Allergy Unknown HALLUCINATIONS, Uncoded 10/06/24 11:20 VOMITING Review of Systems 2 Constitutional: Constitutional: Reports as per HPI Eyes: Eyes: Reports as per HPI ENT: Reports as per HPI Cardiovascular: Cardiovascular: Reports as per HPI Respiratory: Respiratory: Reports as per HPI Gastrointestinal: Gastrointestinal: Reports as per HPI Genitourinary: Genitourinary: Reports as per HPI Musculoskeletal: Musculoskeletal: Reports as per HPI Integumentary/Breasts: Skin/Breast: Reports as per HPI Neurologic: Reports as per HPI Psychiatric: Psychiatric: Reports as per HPI Endocrine: Endocrine: Reports as per HPI Hematologic/Lymphatic: Hematologic/Lymphatic: Reports as per HPI Allergic/Immunologic: Allergic/Immunologic: Reports as per HPI PMFSH Past Medical History Attestation statement: The following information was validated with the patient. Source: old records reviewed and nursing notes reviewed Social History Social History Advance Directives: No Advance Directives Information Provided: Yes Physical Exam ED Vital Signs: Vital Signs - 24 hr 08/07/25 12:41 08/07/25 14:07 Temperature 98.1 F 98.1 F Pulse Rate 88 88 Respiratory Rate 18 18 Blood Pressure 102/70 102/70 Pulse Oximetry 93 93 Oxygen Delivery Method Room Air BMI result Body Mass Index 20.9 Const General: cooperative, no acute distress, alert and awake Nutritional Appearance: well nourished Orientation/consciousness: patient oriented x3 HENMT Head: Yes normal to inspection and Yes atraumatic Ears: hearing grossly normal bilaterally and external ears normal General nose exam: Normal external nose present, no nasal discharge noted and no epistaxis Face and sinus: Yes normal facial exam, No abrasion and No laceration Mouth: Normal oral and palatal mucosa present, no drooling and no muffled voice Eyes General: appearance normal, both eyes and all related structures Periorbital: periorbital findings normal Eyelids: Yes eyelids normal Conjunctivae: conjunctivae normal Pupils: Equal, round and reactive pupils present EOM: EOMs intact bilaterally Neck Neck: Yes normal visual inspection and Yes full ROM Resp Effort & Inspection: normal respiratory effort and able to speak in complete sentences Neuro General: patient oriented x3, moves all extremities and CN's II-XI intact bilaterally Cranial nerves: Yes Equal, round and reactive pupils present Cognition (Neuro): normal cognition Extrem Other: General: Yes full ROM and Yes capillary refill normal Psych Appearance: grossly normal Mental Status: mental status grossly normal Affect: normal affect Attitude: cooperative Thought process: Normal thought process present Thought content: Normal thought content present Insight: Good insight present (Psych) Course Course Course Narrative: This is a Rapid Medical Examination (RME) performed by Krista Chacon PA-C in triage. Full HPI, ROS, assessment and treatment plan per primary provider in the Main ED. Hx: 74 yo F hx of AFib, artificial valve replacement of the mitral valve and aortic valve, on Coumadin, systolic heart failure, hypertension, hyperlipidemia and osteoarthritis here w/ hematoma to right quintero x5 days after a basketball his her right quintero. feels like the area is about to explode . increased pain, states it's starting to drain. hx of similar requiring drainage with recurring cellulitis. PE/vitals: photo of R lower leg below. Plan: labs, will defer imaging to primary provider 1330 -- received critical INR of 5.1 - discussed with charger, patient to be brought back to room. Procedures Procedure Narrative Procedure Narrative: Compression dressing (GAEB wrap) applied to the right lower extremity, over the right lower leg hematoma, without incident. Patient's PMS was intact prior to and after compression dressing application. Medical Decision Making Medical Decision Making MDM Narrative: Patient is a 74 year old assigned female at with a history of atrial fib, mitral valve + aortic valve replacements on coumadin, CHF, HTN, HLD, and OA presenting to the emergency department today with a right lower leg injury. Patient's physical exam was as noted in the physical exam portion of this note. Consistent with a right lower leg hematoma. Patient's blood work showed an elevated INR of 5.1 but otherwise unremarkable. Patient's right tib fib x-ray showed no acute bony process. I explained my physical exam findings as well as all test results to the patient. I answered all questions asked by the patient. I explained to the patient that we do not routinely drain these hematomas in patient's on anti-coagulation medications because they are very likely to re- bleed into the space. Instead, appropriate treatment is holding her anti- coagulant medication for 24 hours and the application of a compression dressing with elevation and ice application. I instructed the patient to hold her Coumadin today and re-check her INR tomorrow then follow up with her coagulation clinic staff on how to proceed with her Coumadin dosing. Patient's right lower extremity was placed in a compression dressing (GABE wrap), without incident. Patient's PMS was intact prior to and after dressing placement. I recommended the patient follow up with the wound center as she has scheduled for continued monitoring of this hematoma. I stressed the importance of the patient taking her other medication as directed (either prescribed or as the over the counter packaging recommends). I stressed the importance of the patient following up with her primary care provider and the wound center. I stressed the importance of the patient returning to the emergency department immediately if her symptoms were to worsen or if she were to develop any dizziness, shortness of breath, difficulty breathing, chest pain, blurry vision, loss of vision, nausea, vomiting, abdominal pain, fever, chills, back pain, or any other complaints. Patient verbalized agreement and understanding with this treatment plan and discharge. Differential Diagnosis Differential Diagnoses: The differential diagnosis associated with the presentation includes Elevated INR Hematoma Right tib fx Right fib fx Right lower extremity injury Admission/Observation Consideration of admission/observation: Escalation of care including admission/observation considered Patient would have been admitted to the hospital had her work up had any findings where hospital admission was appropriate and her clinical presentation warranted hospital admission. Lab Data [facility] Lab Attestation statement: I reviewed the patient's lab results. My interpretation of these results are in the [facility] Rationale portion of this note. 08/07/25 13:07 08/07/25 13:07 Labs: Lab Results 08/07/25 Range/Units 13:07 WBC 10.8 (4.8-10.8) X10*3/uL RBC 3.18 L (4.20-5.50) X10*6/uL Hgb 10.2 L (12.0-16.0) g/dl Hct 32.0 L (37.0-47.0) % MCV 100.6 H (80.0-98.0) fL MCH 32.1 (27.0-33.0) pg MCHC 31.9 (31.0-35.0) g/dl RDW 12.1 (11.0-16.0) % Plt Count 285 (160-400) X10*3/uL MPV 9.6 (9.4-12.3) fL Immature Gran % (Auto) 0.3 (0.0-0.4) % Neut % (Auto) 81.7 H (45-73) % Lymph % (Auto) 9.7 L (20-40) % Rawlins % (Auto) 6.8 (2-11) % Eos % (Auto) 1.0 (0-4) % Baso % (Auto) 0.5 (0-2) % Lymph # (Auto) 1.1 L (1.2-4.9) X10*3/uL Rawlins # (Auto) 0.7 (0.1-1.2) X10*3/uL Eos # (Auto) 0.1 (0.0-0.4) X10*3/uL Baso # (Auto) 0.1 (0.0-0.2) X10*3/uL Abs Immat Gran (auto) 0.03 (0.00-0.03) X10*3/uL Absolute Neuts (auto) 8.8 H (2.0-8.3) x10*3/uL Absolute Nucleated RBC 0.000 (0.0-0.012) X10*3/uL Nucleated RBC % (auto) 0.0 (0.0-0.2) /100WBC PT 58.3 H D (10.9-12.4) SEC INR 5.1 H* D (0.9-1.1) Sodium 142 (135-145) mmol/L Potassium 3.6 (3.3-5.1) mmol/L Chloride 102 (96-108) mmol/L Carbon Dioxide 34 H (22-29) mmol/L Anion Gap 10 L (12-20) BUN 15 (9-16) mg/dL Creatinine 0.68 (0.5-1.4) mg/dL Estim Creat Clear Calc 64.5 Estimated GFR > 60 Random Glucose 110 (60-115) mg/dL Calcium 9.8 (8.4-10.2) mg/dL Magnesium 2.0 (1.6-2.6) mg/dL Total Bilirubin 0.7 (0.0-1.0) mg/dL AST 34 H (5-31) U/L ALT 27 (0-31) U/L Alkaline Phosphatase 56 (39-117) U/L Total Protein 7.1 (6.5-8.0) g/dL Albumin 4.8 (3.5-5.0) g/dL Independent Interpretation I performed an independent interpretation of an: Plain X-Ray Interpretation: My interpretation is in agreement with the radiologist's impression of this imaging study. L Reason for Exam: pain, injury, r/o fx EXAMINATION: XR TIBIA AND FIBULA, RIGHT CLINICAL INFORMATION: pain, injury, r/o fx COMPARISON: None available. TECHNIQUE: AP and lateral views of the right tibia and fibula were obtained. FINDINGS: No fracture, dislocation, or suspicious bone lesion. There is normal alignment. The imaged ankle and knee joints appear unremarkable. There is soft tissue swelling in the lower anterior quintero. XR/XR tibia fibula RT 2V IMPRESSION: 1. No acute bony abnormality. 2. Soft tissue swelling lower anterior quintero. Electronically signed by: Sukhwinder Chamberlain MD 08/07/2025 01:05 PM EDT RP Dictated By: Sukhwinder Chamberlain MD Signed By: Electronically signed by Sukhwinder Chamberlain MD 08/07/25 1303 Radiology Impression Discussion of test interpretation with radiology: I have reviewed the radiologist's reading. Chronic Conditions Patient?s care impacted by: Other (anti-coagulation use) Discharge Plan Discharge Clinical Impression: Hematoma, Elevated INR Patient Disposition: Home, Self-Care Instructions: Elevated INR (ED), Hematoma (ED) Additional Instructions: Your work up today showed an ELEVATED INR of 5.1. This is too high. You MUST hold your coumadin for 24 hours and re-test your INR. You MUST follow up with the coumadin clinic. Please keep your wound center appointment to ensure this heals appropriately. You have a compression dressing over your hematoma - this will help your body re-absorb your hematoma. Unfortunately, the location your hematoma is takes several weeks to heal. Continue to elevate the right lower extremity and apply ice over the area (with a layer between your skin and the ice). Your compression dressing should be tight but not so tight that you have any change in sensation, feeling, motor skills, or color to your right toes. If you do experience any of that - immediately loosen the dressing or remove it entirely and proceed to your closest emergency department. IF you are prescribed home medications and/or you are taking over the counter medications at home - it is very important you continue to do so as prescribed / directed unless told otherwise. Follow up with your primary care provider. Return to the emergency department immediately if your symptoms worsen or if you develop any numbness, tingling, dizziness, shortness of breath, difficulty breathing, chest pain, blurry vision, loss of vision, nausea, vomiting, abdominal pain, fever, chills, back pain, or any other complaints. Please see the information below about our Patient Portal. If you are not yet enrolled in the [facility] Patient Portal, you will receive an enrollment email invitation following your visit to any [facility] setting. You may also self-enroll in the Patient Portal by visiting our website: [email or web address] The following information is required to access the Patient Portal: - Your [facility] Medical Record Number - Your personal home email address (must match what is in your electronic medical record, Registration staff can assist with this) - Name - Date of Capabilities of the Patient Portal: - Message some providers - View upcoming appointments - Access your health summary, medical history, and visit history - View current conditions and allergies - View procedure and lab results - View your medications, including guidelines, side effects, and precautions - Complete pre-appointment questionnaires requested by your provider - Ready summary reports of your office visits and procedures To access the Patient Portal Mobile Sunil, follow these directions: - Search [employer] in the Sunil Store or [employer] Store - Download the Sunil - Search for [facility] - Enter your login/password Prescriptions: No Action cephalexin 500 mg capsule 500 mg PO QID 7 Days Qty: 28 0RF doxycycline hyclate 100 mg capsule 100 mg PO BID Qty: 14 0RF Referrals: Gigi Louie MD [Primary Care Provider, Internal Medicine] Interventions: ED Discharge Assessment Last Done: 08/07/25 14:07 Discharge Date/Time: 08/07/25 14:08 Print Language: Welsh
[2025-08-07 13:12] LABS: MANUAL DIFF FLAG NO
[2025-08-07 13:15] LABS: Hematocrit 32.0 % (37.0-47.0); Hemoglobin 10.2 g/dl (12.0-16.0); Imm Gran Abs Auto 0.03 X10*3/uL (0.00-0.03); Imm Gran Pct Auto 0.3 % (0.0-0.4); Lymphocytes Absolute Auto 1.1 X10*3/uL (1.2-4.9); Mean Corpuscular HGB Conc 31.9 g/dl (31.0-35.0); Mean Corpuscular Hemoglobin 32.1 pg (27.0-33.0); Mean Corpuscular Volume 100.6 fL (80.0-98.0); NRBC Abs Auto 0.000 X10*3/uL (0.0-0.012); NRBC Pct Auto 0.0 /100WBC (0.0-0.2); Platelet Count 285 X10*3/uL (160-400); Red Blood Count 3.18 X10*6/uL (4.20-5.50); White Blood Count 10.8 X10*3/uL (4.8-10.8)
[2025-08-07 13:22] LABS: Prothrombin Time 58.3 SEC (10.9-12.4)
[2025-08-07 13:30] LABS: Alanine Aminotransferase 27 U/L (0-31); Albumin Level 4.8 g/dL (3.5-5.0); Alkaline Phosphatase 56 U/L (39-117); Anion Gap 10 (12-20); Aspartate Amino Transferase 34 U/L (5-31); Blood Urea Nitrogen 15 mg/dL (9-16); Calcium 9.8 mg/dL (8.4-10.2); Carbon Dioxide 34 mmol/L (22-29); Chloride 102 mmol/L (96-108); Creatinine Clr Calc Pharmacy 64.5; Estimated Glomerular Filt Rate > 60; Magnesium 2.0 mg/dL (1.6-2.6); Potassium 3.6 mmol/L (3.3-5.1); Sodium 142 mmol/L (135-145); Total Protein 7.1 g/dL (6.5-8.0)
[2025-08-07 13:31] LABS: INTERNATIONAL NORM RATIO 5.1 (0.9-1.1)
[2025-08-07 14:07] VITALS: BP 102/70; PULSE 88; RESP 18; TEMP 36.7; O2SAT 93
--- OUTSIDE RECORDS SUMMARY | 2025-08-07 20:02 | XMS_ITS | Clinical Summary ---
Author Organization [facility] Address [address] [place] [address] Care Team Providers Care Impregnator Helper Name Role Phone Neo Mederos MD Primary Care Provider [phone] Allergies Active Allergy Reactions Criticality Noted Date Comments Ibuprofen 04/21/2017 Tyloxapol 04/21/2017 Medications Medication Sig Dispensed Refills Start Date End Date Status Furosemide (LASIX PO) Take by mouth as needed. 0 Active metoprolol tartrate (LOPRESSOR) 100 MG tablet Take 100 mg by mouth daily. 0 Active digoxin (LANOXIN) 250 MCG tablet Take 250 mcg by mouth daily. 0 Active warfarin (COUMADIN) 6 MG tablet Take 6 mg by mouth daily. 0 Active Acetaminophen (TYLENOL ARTHRITIS PAIN PO) Take 625 mg by mouth 4 (four) times a day. 0 Active Calcium Carbonate (CALCIUM 600 PO) Take by mouth 2 (two) times a day. 0 Active guaiFENesin (MUCINEX) 600 MG 12 hr tablet Take 1,200 mg by mouth 2 (two) times a day. 0 Active ferrous sulfate 325 (65 FE) MG tablet Take 325 mg by mouth every morning with breakfast. 0 Active GLUCOSAMINE HCL PO Take by mouth daily. 0 Active Ascorbic Acid (VITAMIN C) 1000 MG tablet Take 1,000 mg by mouth daily. With Iron on empty stomach 0 Active Active Problems Problem Noted Date Diagnosed Date Iron deficiency anemia secondary to blood loss ( chronic) 04/25/2017 Family History Medical History Relation Name Comments Cancer Brother 1 liver Cancer Brother 2 lung Cancer Sister skin Relation Name Status Comments Brother 1 Brother 2 Sister Social History Tobacco Use Types Packs/Day Years Used Date Smoking Tobacco: Former Smokeless Tobacco: Never Alcohol Use Standard Drinks/Week Comments Yes 0 (1 standard drink = 0.6 oz pur e alcohol) ocassionally Sex and Gender Information Value Date Recorded Sex Assigned at Not on file Gender Identity Not on file Sexual Orientation Not on file Last Filed Vital Signs Vital Sign Reading Time Taken Comments Blood Pressure 150/91 04/25/2017 10:35 AM EDT Pulse 76 04/25/2017 10:35 AM EDT Temperature - - Respiratory Rate - - Oxygen Saturation - - Inhaled Oxygen Concentration - - Weight 66.2 kg (146 lb) 04/25/2017 10:35 AM EDT Height 165.1 cm (5' 5 ) 04/25/2017 10:35 AM EDT Body Mass Index 24.3 04/25/2017 10:35 AM EDT Plan of Treatment Health Maintenance Due Date Last Done Comments Hepatitis C Screening 1950 COVID-19 Vaccine (#1) 07/01/1951 Depression Screening 1964 Preventative Health Evaluation 1970 DTap / Tdap / Td (1 - Tdap) 12/30/1971 Colon Cancer Screening (Colonoscopy) 1997 Breast Cancer Screening (Mammogram) 2002 Shingrix-Zoster Vaccine (1 of 2) 2002 Fall Risk Assessment 2017 Osteoporosis Screening (DEXA Scan) 2017 Pneumococcal Vaccine (1 of 1 - PCV) 2017 Influenza Vaccine (#1) 2025 RSV Adult > 60+ Yrs or Pregn ant (1 - 1-dose 75+ series) 12/30/2027 Hepatitis B Vaccines Aged Out No long er eligible based on patient's age to complete this topic RSV Ped < 20 months Aged Out No longe r eligible based on patient's age to complete this topic Care Teams Impregnator Helper Relationship Specialty Start Date End Date Neo Mederos MD [address] [place] [address] PCP - General Pulmonary Disease 04/15/17
--- OUTSIDE RECORDS SUMMARY | 2025-08-07 20:02 | XMS_ITS | Clinical Summary ---
Author Organization [facility] Address [address] [facility] [address] [place] [id number] Phone Care Team Providers Care Mainspring Strip Gauger Name Role Phone Neo Mederos MD Primary Care Provider [phone] Allergies Active Allergy Reactions Criticality Noted Date Comments Ibuprofen 04/21/2017 If takes Motrin heart beats fast Tyloxapol 04/21/2017 Medications acetaminophen (TYLENOL) 650 MG CR tablet Take 625 mg by mouth. Active calcium carbonate-vitamin D3 1500 mg (600 mg elemental)-400 units per tablet Take by mouth. Active furosemide (LASIX) 20 MG tablet Take 40 mg by mouth 2 (two) times a day. 40 mg in AM and 20 mg in PM Active glucosamine HCl 1,500 mg Tab Take by mouth. Ac tive ascorbic acid, vitamin C, (VITAMIN C) 1000 MG tablet Take 1,000 mg by mouth. Active digoxin (LANOXIN) 250 mcg tablet Take by mouth. Active metoprolol tartrate (LOPRESSOR) 100 MG tablet Take 100 mg by mouth. Active warfarin (COUMADIN) 6 MG tablet Take 6 mg by mouth. Active denosumab (PROLIA) 60 mg/mL Syrg subcutaneous syringeIndication s:postmenopausal osteoporosis Inject 60 mg under the skin once. Every 6 mos Indications: Decreased Bone Mass Following Menopause Active atorvastatin (LIPITOR) 10 MG tablet Take 10 mg by mouth daily. Active hydrocortisone 1 % ointmentIndicatio ns:Vulvar itching Apply small amount to affected area twice daily as needed itching 28 g 1 Active fluorouraciL (EFUDEX) 5 % cream PLEASE SEE ATTACHED FOR DETAILED DIRECTIONS 3 Active potassium chloride (KLOR-CON) 10 MEQ ER tablet Take 1 tablet by mouth every morning. 3 Active warfarin (COUMADIN) 5 MG tablet TAKE 1 TABLET BY MOUTH EVERY DAY OR DIRECTED BY PCP ACCORDING TO INR 3 Active INCRUSE ELLIPTA 62.5 mcg/actuation inhalation TAKE 1 PUFF BY MOUTH EVERY 24 HOURS FOR 90 DAYS 3 Active YUVAFEM 10 mcg TabIndications:Va ginal atrophy PLACE 1 TABLET VAGINALLY 2 TIMES A WEEK. 24 tablet 3 4 Active Active Problems Problem Noted Date Diagnosed Date Vaginal atrophy 01/08/2019 Assessment & Plan (01/25/2021 10:24 AM EDT): Pt happy with vaginal estrogen use. Plan to continue. Resolved Problems Problem Noted Date Diagnosed Date Resolved Date Vulvar itching 01/25/2021 07/11/2023 Assessment & Plan (01/25/2021 10:23 AM EDT): Symptoms seem to be related to skin overlying the small cluster of inclusion cyst. No abnormal skin changes noted. Suggested 1% hydrocortisone ointment, small amount, twice daily as needed to affected area. Follow-up as needed. Immunizations Immunization Administration Dates Next Due COVID-19 (Pre-08/08) Pfizer Vaccine, Bivalent 12+ 07/21/2022 COVID-19 (Pre-08/08) Pfizer Vaccine, mRNA, PF 01/20/2021 INFLUENZA, SPLIT VIRUS, TRIV ALENT W/ PRESERVATIVE IM 07/05/2017 Influenza High-Dose Quadriva lent Preservative Free IM 07/19/2022,06/17/2021 Influenza High-Dose Trivalen t Preservative Free IM 08/23/2019 Influenza Quadrivalent Adjuv anted Preservative Free IM 06/29/2023,06/24/2020 Influenza Quadrivalent Prese rvative Free IM 11/12/2016 Influenza Quadrivalent w/ Preservative IM 11/12/2016 Influenza, Unspecified Formulation 07/19,06/17/2021,06/24/2020,2018,11/12/2016 Pneumococcal conjugate PCV20 08/11/2022 RSV Vaccine (monovalent, adjuvanted) 07/05/2023 Tdap 03/10/2023 Zoster recombinant 08/23/2019 Family History Medical History Relation Comments Lung cancer Brother 1 age 57 Esophageal cancer Brother 2 age 63 Sudden Brother 3 age 45 ?drug OD Heart attack Father age 84 COPD Mother Hip fracture Mother age 75 Osteoporosis Mother Breast cancer Sister Stage 1 doing we ll Relation Status Comments Brother 1 Brother 2 Brother 3 Brother 4 Alive Father Mother Sister Alive Social History Tobacco Use Types Packs/Day Years Used Date Smoking Tobacco: Former Cigarettes Q uit: 12/31/2022 Smokeless Tobacco: Never Alcohol Use Standard Drinks/Week Comments Yes 0 (1 standard drink = 0.6 oz pur e alcohol) Education Answer Date Recorded Are you interested in more education? Not on gaby e 02/11/2023 Are you concerned about learning? Not on file 02/11/2023 No 02/11/2023 No 02/11/2023 Digital Access Answer Date Recorded No 03/12/2023 No 03/12/2023 Reliable internet access at home? Not on file 03/12/2023 Device with a working camera? 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 Not on file Not on file Not on file Last Filed Vital Signs Vital Sign Reading Time Taken Comments Blood Pressure 110/70 07/11/2023 10:48 AM EDT Pulse - - Temperature - - Respiratory Rate - - Oxygen Saturation - - Inhaled Oxygen Concentration - - Weight 63 kg (139 lb) 07/11/2023 10:48 AM EDT Height 162.6 cm (5' 4 ) 07/11/2023 10:48 AM EDT Body Mass Index 23.86 07/11/2023 10:48 AM EDT Plan of Treatment Health Maintenance Due Date Last Done Comments LIPID PANEL 1950 POTASSIUM LEVEL 1950 DEPRESSION SCREENING 1964 SMOKING Hx and SMOKELESS TOBACCO SCREENING 1965 HEPATITIS C SCREENING 1970 COLOGUARD 1997 COLONOSCOPY 1997 COLORECTAL CANCER SCREENING 1997 FIT TEST 1997 FOBT 1997 SIGMOIDOSCOPY 1997 VIRTUAL COLONOSCOPY 1997 OSTEOPOROSIS SCREENING INITIAL (ONE-TIME) 2017 ZOSTER VACCINES (2 of 2) 10/18/2019 08/23/2019 MAMMOGRAM 02/24/2023 02/24/2021 INFLUENZA VACCINE (#1) 2025 , 07/19/2022, 07/19/2022, Additional history exists COVID-19 VACCINE ( season) 2025 07/21/2022, 03/11/2022, 07/27/2021, Additional history exists Adult Td,Tdap Booster 03/10/2033 03/10/2023 PNEUMOCOCCAL VACCINES (50+ years) Completed 08/11/2022 RSV VACCINE Completed 07/05/2023 HEPATITIS A VACCINES Aged Out No long er eligible based on patient's age to complete this topic HIB VACCINES Aged Out No longer eligi ble based on patient's age to complete this topic MENINGOCOCCAL VACCINES (ACWY) Aged Out No longer eligible based on patient's age to complete this topic MENINGOCOCCAL VACCINES (B) Aged Out N o longer eligible based on patient's age to complete this topic Medical Devices Not on file Procedures Procedure Name Priority Date/Time Associated Diagnosis Comments MAMMOGRAPHY Routine 02/24/2021 from Last 3 Months or Most Recently Relevant to Health Maintenance Results * MAMMOGRAPHY FOR RESULT ENTRY ONLY (02/24/2021) Historical Provider HEALTH MAINTENANCE Final Result from Last 3 Months or Most Recently Relevant to Health Maintenance Insurance [facility] MEDICARE SUPPLEMENT MEDICARE PART A & B [facility] MEDICARE SUPPLEMENT MEDICARE PART A & B [facility] [employer] [place] [facility] MEDICARE SUPPLEMENT MEDICARE PART A & B [facility] MEDICARE SUPPLEMENT MEDICARE PART A & B [facility] MEDICARE SUPPLEMENT MEDICARE PART A & B [facility] MEDICARE SUPPLEMENT MEDICARE PART A & B [facility] MEDICARE SUPPLEMENT MEDICARE PART A & B [facility] MEDICARE SUPPLEMENT MEDICARE PART A & B [facility] MEDICARE SUPPLEMENT MEDICARE PART A & B Care Teams Mainspring Strip Gauger Relationship Specialty Start Date End Date Neo Mederos MD [address] [place] [id number] PCP - General Pulmonary Disease 01/08/19 Additional Source Comments The information contained in this document represents components of the legal health record. It is not the complete legal health record.[facility]
--- OUTSIDE RECORDS SUMMARY | 2025-08-07 20:03 | XMS_ITS | Clinical Summary ---
Author Organization [address] [place] [address] [place] [phone] Phone Care Team Providers Care Coordinator Volunteer Services Name Role Phone Mp Louie MD Primary Care Provide r Allergies Active Allergy Reactions Criticality Noted Date Comments Ibuprofen 09/29/2020 Other Reaction(s): Palpitations Oxycodone-Acetaminophen 09/29/2020 Medications guaiFENesin (MUCINEX) 600 mg 12 hr tablet Take 2 Tablets by mouth 2 times daily. Active denosumab (Prolia) 60 mg/mL syringe syringe Inject 60 mg into the skin. Every 6 months 8 Active umeclidinium (Incruse Ellipta) 62.5 mcg/actuation inhalation Inhale into the lungs. Active amoxicillin (AMOXIL) 500 mg capsule Prior to dental work 9 Active warfarin (COUMADIN) 5 mg tablet Managed by [facility] 3 Active metoprolol succinate (TOPROL-XL) 100 mg 24 hr tablet 1 Tablet daily. Active multivit-min/iron /folic acid/K (ADULTS MULTIVITAMIN ORAL) Multiple Vitamins-Mine rals (MULTIVITAMIN ADULT) Tab 3 Active potassium chloride (MICRO-K) 10 mEq CR capsule daily. 8 Active calcium carb/vit D3/minerals (CALCIUM CARBONATE-VIT D3-MIN ORAL) CALCIUM CARBONATE-VIT D-MIN (CALCIUM 1200 OR): Take by mouth. - Oral Active guaifenesin/dextr omethorphan (GUAIFENESIN DM ORAL) Take 1,200 mg by mouth 2 (two) times a day. Active LEVALBUTEROL TARTRATE INHL Inhale 45 mcg by mouth 1 (one) time each day if needed (2 puffs when needed). Active nitroglycerin (NITROSTAT) 0.[address] 1 tablet (0.4 mg total) under the tongue every 5 (five) minutes if needed for chest pain. May repeat dose every 5 minutes for up to 3 doses total. 100 tablet 11 4 09/03/20 25 Active atorvastatin (LIPITOR) 20 mg tablet Take 1 tablet (20 mg total) by mouth at bedtime. Active furosemide (LASIX) 40 mg tablet Take 1 tablet (40 mg total) by mouth 2 (two) times a day. Active Active Problems Problem Noted Date Diagnosed Date Bradycardia 04/05/2025 Assessment & Plan (04/09/2025 9:24 PM EDT): As above. Orders: Digoxin level; Future History of tricuspid valve annuloplasty 04/05/20 25 Assessment & Plan (04/09/2025 9:24 PM EDT): Orders: Transthoracic echocardiogram (TTE) complete with PRN contrast, bubble, strain, and 3D order panel; Future Dizziness 04/05/2025 Assessment & Plan (04/09/2025 9:24 PM EDT): As above; we will also update an echo to reevaluate her valvular dysfunction though she has not other significant symptoms or findings on physical exam to suggest any further deterioration. We will continue to readdress this one echo results are reviewed. Check labs. Orders: Transthoracic echocardiogram (TTE) complete with PRN contrast, bubble, strain, and 3D order panel; Future Basic metabolic panel; Future Status post mechanical aortic valve replacement 04/05/2025 Assessment & Plan (04/09/2025 9:24 PM EDT): Echo May 2023 showed the aortic and mitral valve prostheses were functioning normally but with an increased gradient across the aortic valve; there was mild to moderate tricuspid regurgitation but the tricuspid ring was well seated. We will update an echocardiogram to reevaluate this given her new dizziness and ongoing shortness of breath with exertion. She is aware of the need for SBE prophylaxis 30-60 minutes prior to any dental cleanings or procedures. Orders: Transthoracic echocardiogram (TTE) complete with PRN contrast, bubble, strain, and 3D order panel; Future Status post mitral valve replacement 04/05/2025 Assessment & Plan (04/09/2025 9:24 PM EDT): Orders: Transthoracic echocardiogram (TTE) complete with PRN contrast, bubble, strain, and 3D order panel; Future Secondary hypercoagulable state ([facility] V24) Assessment & Plan (04/09/2025 9:24 PM EDT): Heart failure (CMS/[facility] V24, [facility] V28) Assessment & Plan (04/09/2025 9:24 PM EDT): I have reviewed numerous notes dating back to 2019, none of which mention on admission for heart failure. It is unclear if her EF was reduced at one point. Her most recent echocardiogram 05/2023 reveals an LVEF of 55 to 60% and mentions that they were unable to adequately assess left ventricular diastolic function due to mechanical mitral valve. Given her history of significant valvular dysfunction, LVH, and severely dilated biatria, I could understand that heart failure may have been an issue previously. She appears euvolemic on exam today and offers no symptoms to cause concern for overt heart failure; her shortness of breath is at baseline and peripheral edema is mild on exam which she reports is also at her baseline. Conservative measures related to peripheral edema including compression, elevation, and low-sodium diet were encouraged. Continue metoprolol and furosemide. She has not had an echo in almost 2 years and for multiple reasons we will update this today. We discussed risk reduction through lifestyle modifications including healthy diet, routine exercise, and weight management. We reviewed heart failure management including low sodium diet, symptom surveillance, daily weights, and medication compliance. I've asked the patient to call if they develop worsening symptoms of heart failure such as increased shortness of breath, new or worsening cough, increased swelling in the legs or ankles, or weight gain of more than 2 pounds in one day or 4 pounds in one week. Orders: B-type natriuretic peptide; Future ECG 12 lead Stenosis of prosthetic aortic valve 09/03/2024 Hypertension 09/19/2023 Overview (07/24/2024): Last Assessment & Plan: Today the blood pressure is elevated. I have asked her to check her blood pressure at home and explained how to do this. I told her I like to see the systolic in the 130s below and the diastolic in the 70s to 80s. I told her if the numbers are higher than this she is to let the primary doctor or ourselves know. Assessment & Plan (04/09/2025 9:24 PM EDT): Blood pressure is well controlled on current antihypertensive regimen; continue metoprolol and furosemide. Update BMP. Orders: Basic metabolic panel; Future Hyperlipidemia 09/19/2023 Overview (07/24/2024): Last Assessment & Plan: Its been a while since she had a lipid profile done. I gave her a slip for this. Assessment & Plan (04/09/2025 9:24 PM EDT): Most recent lipid panel from 06/21/2024 obtained form PCP office showing a total cholesterol of 147, triglycerides 93, HDL 50, and LDL 80. Continue atorvastatin. Claudication ([facility] V24) 09/19/2023 Overview (07/24/2024): Last Assessment & Plan: She does have bilateral calf discomfort with walking left greater than right. Going to schedule for ABIs and Doppler study. Shortness of breath on exertion 03/03/2022 Overview (07/24/2024): Last Assessment & Plan: Has had shortness of breath for quite some time and is no different. Do think this is in part related to her prior history of smoking. She smoked for about 51 years for average about 2 packs/day. But also going to check a BNP. Assessment & Plan (04/09/2025 9:24 PM EDT): At her typical baseline; as discussed above, to be prudent we will update an echocardiogram. Orders: Transthoracic echocardiogram (TTE) complete with PRN contrast, bubble, strain, and 3D order panel; Future Longstanding persistent atri al fibrillation ([facility] V24, [facility] V28) 09/29/2020 Overview (07/24/2024): Last Assessment & Plan: She remains in atrial fibrillation. The rate appears to be controlled. She is on warfarin. Also is on digoxin we will check a digoxin level. Assessment & Plan (04/09/2025 9:24 PM EDT): She has noted to be quite bradycardic on exam today; her heart rate was low at her last visit as well but previously was a bit higher than this. Her digoxin level on last checked 06/21/2024 was 1.3; we will recheck this today but ultimately I would like her to stop digoxin to see if this improves her heart rate and decreases her symptoms of dizziness and fatigue. She will continue metoprolol alone for rate control. She is agreeable to this plan. She will monitor her blood pressure and heart rate at home and call us in 1 to 2 weeks with these readings. She is anticoagulated on Coumadin for cardioembolic prophylaxis; we discussed the risk and benefits of continuing with anticoagulation and she wishes to continue with the current plan. She is aware to seek urgent medical attention for any uncontrolled bleeding, signs or symptoms of GI or other internal bleeding, or for any head injury. Orders: Digoxin level; Future ECG 12 lead Ascending aortic aneurysm ([facility] V24) 09/29/20 20 Overview (07/24/2024): Last Assessment & Plan: I reviewed her last echocardiographic findings with her. The ascending aorta was 4.6 cm. I am going to order a CT of her chest. If the ascending aorta has gotten bigger on the CT of her chest compared to her last CT of her chest we will refer her to cardiac surgery. Assessment & Plan (04/09/2025 9:24 PM EDT): As above we are updating an echocardiogram for reevaluation. BP is well controlled. Orders: Transthoracic echocardiogram (TTE) complete with PRN contrast, bubble, strain, and 3D order panel; Future Family History Medical History Relation Name Comments Heart failure Father Hypertension Father Relation Name Status Comments Father Social History Tobacco Use Types Packs/Day Years Used Date Smoking Tobacco: Former Cigarettes Q uit: 12/2022 Smokeless Tobacco: Never Tobacco Cessation:Counseling Given: Not Answered Alcohol Use Standard Drinks/Week Comments Yes 0 (1 standard drink = 0.6 oz pur e alcohol) rarely Comments Unknown Sex and Gender Information Value Date Recorded Sex Assigned at Not on file Legal Sex Female 10:26 AM EST Gender Identity Not on file Sexual Orientation Not on file Obstetrics History Last Filed Vital Signs Vital Sign Reading Time Taken Comments Blood Pressure 120/68 04/05/2025 1:31 PM EDT Pulse 46 04/05/2025 1:31 PM EDT Temperature - - Respiratory Rate - - Oxygen Saturation 94% 04/05/2025 1:31 PM EDT Inhaled Oxygen Concentration - - Weight 64 kg (141 lb) 04/05/2025 1:31 PM EDT Height 162.6 cm (5' 4 ) 04/05/2025 1:31 PM EDT Body Mass Index 24.2 04/05/2025 1:31 PM EDT Plan of Treatment Upcoming Encounters Date Type Department Care Team (Late st Contact Info) Description 08/19/2025 3:00 PM EST Ancillary Procedure [facility] [address] [facility] [address] [place] [address] Health Maintenance Due Date Last Done Comments Breast Cancer Screening 1950 Colorectal Cancer Screening: Colonoscopy 1950 Zoster Vaccines (2 of 2) 10/18/2019 08/23/2019 Cholesterol Screening (Lipid Panel) 09/25/2022 Falls Risk Assessment 09/25/2022 Hepatitis C Screening 09/25/2022 Osteoporosis Screening (Bone Density Screening) 09/25/2022 Social Influencers of Health Screening 09/25/2022 Medicare Annual Wellness Visit 03/10/2024 03/10/2023 Depression Screening 10/17/2024 COVID-19 Vaccine ( season) 2025 06/27/2024, 07/30/2023, 07/21/2022, Additional history exists Influenza Vaccine (#1) 2025 4, 06/29/2023, 07/19/2022, Additional history exists Hypertension/CHF/CAD Annual BMP Blood Test 05/01/2026 05/01/2025, 04/05/2025 DTaP,Tdap,and Td Vaccines (2 - Td or Tdap) 03/10/2033 03/10/2023 Pneumococcal Vaccine: 50+ Years Completed 08/11/2022 RSV Immunization Adult Patients Completed 07/05/2023 HIB Vaccines Aged Out No longer eligi ble based on patient's age to complete this topic HPV Vaccines Aged Out No longer eligi ble based on patient's age to complete this topic Hepatitis A Vaccines Aged Out No long er eligible based on patient's age to complete this topic Hepatitis B Vaccines Aged Out No long er eligible based on patient's age to complete this topic IPV Vaccines Aged Out No longer eligi ble based on patient's age to complete this topic MMR Vaccines Aged Out No longer eligi ble based on patient's age to complete this topic Meningococcal ACWY Vaccine Aged Out N o longer eligible based on patient's age to complete this topic Meningococcal B Vaccine Aged Out No l onger eligible based on patient's age to complete this topic RSV Immunization Patients Under 20 months Aged Out No longer eligible based on patient's age to complete this topic Varicella Vaccines Aged Out No longer eligible based on patient's age to complete this topic Procedures Procedure Name Priority Date/Time Associated Diagnosis Comments BASIC METABOLIC PANEL Routine 05/01/2025 12:02 PM EDT Heart failure, unspecified HF chronicity, unspecified heart failure type (CMS/[facility] V24, [facility] V28) from Last 3 Months or Most Recently Relevant to Health Maintenance Results * (ABNORMAL) Basic metabolic panel (05/01/2025 12:02 PM EDT) Glucose 107(H) 70 - 99 mg/dL [facility] Blood Urea Nitrogen (BUN) 15 8 - 27 mg/dL [facility] Creatinine 0.69 0.57 - 1.00 mg/dL [facility] 1 eGFR 92 >59 mL/min/1.7 3 [facility] 1 BUN/Creatinine Ratio 22 12 - 28 [facility] 1 Sodium 143 134 - 144 mmol/L [facility] 1 Potassium 3.8 3.5 - 5.2 mmol/L [facility] 1 Chloride 98 96 - 106 mmol/L [facility] 1 Carbon Dioxide 29 20 - 29 mmol/L [facility] 1 Calcium 9.9 8.7 - 10.3 mg/dL [facility] 1 Blood Venous blood specimen / Unknown 05/01/2025 12:02 PM EDT 05/01/2025 Narrative [facility] 1 - 05/01/2025 11:06 PM EDT Performed at: 01 - [facility] [address] [id number] [place]: Lois Donaldson MD, Phone: [phone] Art Wyatt MD LAB BLOOD ORDERABLES Final Resu lt [facility] 1 from Last 3 Months or Most Recently Relevant to Health Maintenance Insurance MEDICARE [facility] [address] [place] [phone] Care Teams Coordinator Volunteer Services Relationship Specialty Start Date End Date Mp Louie MD PCP - General Internal Medicine 02/16/25
== END 2025-08-07 14:08 | disposition home or self-care (01) ==
PROVIDERS: Physician Assistant Medical; Emergency Provider Emergency Medicine; PCP Internal Medicine
DX: S80.11XA Contusion of right lower leg, initial encounter (principal); M79.604 Pain in right leg; I10 Essential (primary) hypertension; X58.XXXA Exposure to other specified factors, initial encounter; Y93.9 Activity, unspecified; Y92.9 Unspecified place or not applicable; Y99.8 Other external cause status
CPT/HCPCS: 36415; 73590; 80053; 83735; 85025; 85610; 99282; 99283

== ENCOUNTER → 2025-08-07 12:49 | Outpatient (BNV) | payer MEDICARE, OTHER, SELFPAY | PROVIDERS: Emergency Provider Emergency Medicine; PCP Internal Medicine; Visit Provider Radiology Diagnostic Radiology | DX: M79.89 Other specified soft tissue disorders (principal) | CPT/HCPCS: 73590 ==

== ENCOUNTER 2025-08-09 13:51 | Emergency (ER) | payer MEDICARE, OTHER, SELFPAY ==
[2025-08-09 13:57] VITALS: BP 134/87; PULSE 90; RESP 18; TEMP 36.6; O2SAT 95; BMI 20.9
--- NOTE | 2025-08-09 13:57 | ED.SOB ---
HPI - SOB/Dyspnea General Chief Complaint: Wound/Laceration Stated Complaint: Asthma Shortness Of Breath Time Seen by Provider: 08/09/25 17:08 History of Present Illness ED Provider: Elijah Del Valle MD HPI Narrative: This is a pleasant 74-year-old female on Coumadin she was struck with a basketball in the lower right quintero few days ago she attempted to go to Wound Care where she is a patient for other pathology but they were concerned about the size of the hematoma sent her here. Patient denies fever chills numbness tingling or color change to the foot distally. She has a large hematoma of the right quintero that is been expanding dark colored Related Data Previous Rx's ?Medication ?Instructions ?Recorded doxycycline hyclate 100 mg capsule 100 mg PO BID #14 caps 10/03/24 cephalexin 500 mg capsule 500 mg PO QID 7 days #28 caps 10/06/24 doxycycline hyclate 100 mg tablet 100 mg PO BID 7 days #14 tabs 08/09/25 Allergies Allergy/AdvReac Type Severity Reaction Status Date / Time acetaminophen (From TYLOX) Allergy Unknown HALLUCINATIONS, Verified 08/09/25 14:00 VOMITING chlorpheniramine (From Allergy Unknown HIVES Verified 08/09/25 14:00 CONTAC) guaifenesin (From CONTAC) Allergy Unknown HIVES Verified 08/09/25 14:00 ibuprofen (From MOTRIN) Allergy Unknown HEART Verified 08/09/25 14:00 PALPITATION From CONTAC Allergy Unknown HIVES Uncoded 10/06/24 11:20 From TYLOX Allergy Unknown HALLUCINATIONS, Uncoded 10/06/24 11:20 VOMITING Physical Exam Exam: Exam: GENERAL: Well appearing. No apparent distress. Alert. HEAD/NECK: No visual trauma. EYES: Normal to inspection. No conjunctival erythema. No discharge. ENMT: Hearing grossly normal. External nose normal. RESPIRATORY: Respiratory effort normal. CARDIOVASCULAR: Additional details (Grossly well perfused). SKIN: No jaundice. NEUROLOGICAL: Alert. Moving all extremities x4. Additional details (No gross motor deficits. Normal tone. ). PSYCHIATRIC: Alert. Appearance appropriate for situation. Right lower extremity distal anterior pretibial area with large hematoma about 12 x 5 well-perfused distal right lower extremity. Vital Signs: Vital Signs: Last Vital Signs Temp 97.8 F 08/09/25 17:47 Pulse 90 08/09/25 17:47 Resp 18 08/09/25 17:47 BP 134/87 08/09/25 17:47 Pulse Ox 95 08/09/25 17:47 O2 Del Method Room Air 08/09/25 17:47 BMI result Body Mass Index 20.9 Course Course Course Narrative: Barb Leiva CAR PRE COOLER 08/09 9187 This is a rapid medical exam. Deferred additional HPI, ROS, PE to primary provider. 74 yo female with PMH of history of atrial fib, mitral valve + aortic valve replacements on coumadin, CHF, HTN, HLD, and OA here with swelling to RLE since last Tuesday. Seen here 08/07 and noted to have large hematoma to RLE, followed up with wound center today who sent patient in for I&D. Will obtain labs including INR VSS Medications Administered Discontinued Medications Generic Name Dose Route Start Last Admin Trade Name Freq PRN Reason Stop Dose Admin Doxycycline Monohydrate 100 mg 08/09/25 17:39 08/09/25 17:44 Doxycycline Monohydrate 100 Mg Capsule PO 08/09/25 17:40 100 mg ONCE ONE Administration Medical Decision Making Medical Decision Making [facility] Narrative: Subcutaneous hematoma, on Coumadin INR 1.9. Goal 2.5 she has already been seen in the Coumadin Clinic and has plan for the next few days to escalate warfarin dosing. Large subcutaneous hematoma with no suggestion of venous or arterial structures on ultrasound see ultrasound report. Necrotic thin skin overlying this this was all unroofed and large amount of clotted blood was removed. Surgicel, iodoform gauze and pressure dressing placed. Follow up in 2 days here in ED, prophylactic doxycycline. Strict return precautions. Lab Data 08/09/25 14:07 08/09/25 14:07 Labs: Lab Results 08/09/25 Range/Units 14:07 WBC 10.3 (4.8-10.8) X10*3/uL RBC 3.20 L (4.20-5.50) X10*6/uL Hgb 10.4 L (12.0-16.0) g/dl Hct 32.1 L (37.0-47.0) % MCV 100.3 H (80.0-98.0) fL MCH 32.5 (27.0-33.0) pg MCHC 32.4 (31.0-35.0) g/dl RDW 12.1 (11.0-16.0) % Plt Count 322 (160-400) X10*3/uL MPV 9.8 (9.4-12.3) fL Immature Gran % (Auto) 0.4 (0.0-0.4) % Neut % (Auto) 76.0 H (45-73) % Lymph % (Auto) 15.0 L (20-40) % Coles % (Auto) 7.2 (2-11) % Eos % (Auto) 0.8 (0-4) % Baso % (Auto) 0.6 (0-2) % Lymph # (Auto) 1.5 (1.2-4.9) X10*3/uL Coles # (Auto) 0.7 (0.1-1.2) X10*3/uL Eos # (Auto) 0.1 (0.0-0.4) X10*3/uL Baso # (Auto) 0.1 (0.0-0.2) X10*3/uL Abs Immat Gran (auto) 0.04 H (0.00-0.03) X10*3/uL Absolute Neuts (auto) 7.8 (2.0-8.3) x10*3/uL Absolute Nucleated RBC 0.000 (0.0-0.012) X10*3/uL Nucleated RBC % (auto) 0.0 (0.0-0.2) /100WBC PT 21.9 H D (10.9-12.4) SEC INR 1.9 H D (0.9-1.1) Sodium 144 (135-145) mmol/L Potassium 3.4 (3.3-5.1) mmol/L Chloride 102 (96-108) mmol/L Carbon Dioxide 35 H (22-29) mmol/L Anion Gap 10 L (12-20) BUN 20 H (9-16) mg/dL Creatinine 0.64 (0.5-1.4) mg/dL Estim Creat Clear Calc 68.6 Estimated GFR > 60 Random Glucose 127 H (60-115) mg/dL Calcium 10.7 H D (8.4-10.2) mg/dL Procedures Procedure Narrative Procedure Narrative: EMERGENCY ULTRASOUND INTERPRETATION- Limited skin and soft tissue [This study was ordered, performed, and interpreted by myself. The study reveals: Impression: ?No signs of cellulitis or abscess [Indication: ?Redness and swelling Skin: ?No signs of cellulitis or abscess Performed by: ?Elijah Del Valle MD ?Images were stored ] ___ Abscess I/D Site: lower extremity Side (if applicable): right Technique: incised with blade Amount of fluid expressed (mL): 20 Sent for culture/gram staining?: No Irrigation: Yes Packing used?: iodoform Discharge Plan Discharge Clinical Impression: Hematoma Patient Disposition: Home, Self-Care Instructions: Hematoma (ED) Additional Instructions: As we discussed you need to return for wound check on Tuesday morning 11:00 preferably. Come right to the emergency department check in. Take the antibiotics as prescribed. Keep the dressing we have applied including Johnny wrap in place. If you bleed through this at anytime until you come on Tuesday call an ambulance and come back for evaluation. Continue taking your warfarin as prescribed and instructed to by your warfarin clinic Prescriptions: New doxycycline hyclate 100 mg tablet 100 mg PO BID 7 Days Qty: 14 0RF No Action cephalexin 500 mg capsule 500 mg PO QID 7 Days Qty: 28 0RF doxycycline hyclate 100 mg capsule 100 mg PO BID Qty: 14 0RF Interventions: ED Discharge Assessment Last Done: 08/09/25 17:47 Discharge Date/Time: 08/09/25 18:03 Print Language: Uzbek
[2025-08-09 14:13] LABS: MANUAL DIFF FLAG NO
[2025-08-09 14:18] LABS: Hematocrit 32.1 % (37.0-47.0); Hemoglobin 10.4 g/dl (12.0-16.0); Imm Gran Abs Auto 0.04 X10*3/uL (0.00-0.03); Imm Gran Pct Auto 0.4 % (0.0-0.4); Lymphocytes Absolute Auto 1.5 X10*3/uL (1.2-4.9); Mean Corpuscular HGB Conc 32.4 g/dl (31.0-35.0); Mean Corpuscular Hemoglobin 32.5 pg (27.0-33.0); Mean Corpuscular Volume 100.3 fL (80.0-98.0); NRBC Abs Auto 0.000 X10*3/uL (0.0-0.012); NRBC Pct Auto 0.0 /100WBC (0.0-0.2); Platelet Count 322 X10*3/uL (160-400); Red Blood Count 3.20 X10*6/uL (4.20-5.50); White Blood Count 10.3 X10*3/uL (4.8-10.8)
[2025-08-09 14:25] LABS: INTERNATIONAL NORM RATIO 1.9 (0.9-1.1); Prothrombin Time 21.9 SEC (10.9-12.4)
[2025-08-09 14:26] LABS: Anion Gap 10 (12-20); Blood Urea Nitrogen 20 mg/dL (9-16); Calcium 10.7 mg/dL (8.4-10.2); Carbon Dioxide 35 mmol/L (22-29); Chloride 102 mmol/L (96-108); Creatinine Clr Calc Pharmacy 68.6; Estimated Glomerular Filt Rate > 60; Potassium 3.4 mmol/L (3.3-5.1); Sodium 144 mmol/L (135-145)
--- NOTE | 2025-08-09 17:07 | PC.NURSE ---
Pt states last Sat was struck in the R quintero w/ a ball and sustained hematoma. Pt was seen here two days ago, elizabeth wrapped in hopes of pt reabsorbinng the hematoma. Pt was seen at wound care today and was sent here for re-eval of hematoma has grown expoenentionally. Pt c/o 5/10 leg pain w/ walkine.
--- OUTSIDE RECORDS SUMMARY | 2025-08-09 17:23 | XMS_ITS | Clinical Summary ---
Author Organization [facility] Address [address] [facility] [facility] [address] [place] [phone] Phone Care Team Providers Care 21 Dealer Name Role Phone Neo Mederos MD Primary Care Provider [phone] Allergies Active Allergy Reactions Criticality Noted Date [...] Relevant to Health Maintenance Insurance [facility] MEDICARE SUPPLEMENT MEDICARE PART A & B [facility] MEDICARE SUPPLEMENT MEDICARE PART A & B [facility] [place] [facility] MEDICARE SUPPLEMENT MEDICARE PART A & B [facility] MEDICARE SUPPLEMENT MEDICARE PART A & B [facility] MEDICARE SUPPLEMENT MEDICARE PART A & B [facility] MEDICARE SUPPLEMENT MEDICARE PART A & B [facility] MEDICARE SUPPLEMENT MEDICARE PART A & B [facility] MEDICARE SUPPLEMENT MEDICARE PART A & B [facility] MEDICARE SUPPLEMENT MEDICARE PART A & B Care Teams 21 Dealer Relationship Specialty Start Date End Date Neo Mederos MD [address] [place] [id number] PCP - General Pulmonary Disease 01/08/19 Additional Source Comments The information contained in this document represents components of the legal health record. It is not the complete legal health record.[facility]
--- OUTSIDE RECORDS SUMMARY | 2025-08-09 17:23 | XMS_ITS | Clinical Summary ---
Author Organization [facility] Address [address] [place] [address] Care Team Providers Care Market Stall Vendor Name Role Phone Neo Mederos MD Primary Care Provider [phone] Allergies Active Allergy Reactions Criticality Noted Date [...] age to complete this topic Care Teams Market Stall Vendor Relationship Specialty Start Date End Date Neo Mederos MD [address] [place] [address] PCP - General Pulmonary Disease 04/15/17
--- OUTSIDE RECORDS SUMMARY | 2025-08-09 17:24 | XMS_ITS | Clinical Summary ---
Author Organization [address] [place] [address] [place] [phone] Phone Care Team Providers Care Roll Mill Operator Name Role Phone Mp Louie MD Primary [...] warfarin (COUMADIN) 5 mg tablet Managed by [facility] Coumadin clinic 3 Active metoprolol succinate [...] 3D order panel; Future Secondary hypercoagulable state ([facility] V24) Assessment & Plan (04/09/2025 9:24 PM EDT): Heart failure (CMS/[facility] V24, [facility] V28) Assessment & Plan (04/09/2025 9:24 PM [...] 50, and LDL 80. Continue atorvastatin. Claudication ([facility] V24) 09/19/2023 Overview (07/24/2024): Last Assessment & [...] panel; Future Longstanding persistent atri al fibrillation ([facility] V24, [facility] V28) 09/29/2020 Overview (07/24/2024): Last Assessment & [...] Future ECG 12 lead Ascending aortic aneurysm ([facility] V24) 09/29/20 20 Overview (07/24/2024): Last Assessment [...] Description 08/19/2025 3:00 PM EST Ancillary Procedure [facility] [address] [facility] [address] [place] [address] Health Maintenance Due Date Last [...] unspecified HF chronicity, unspecified heart failure type ([facility] V24, [facility] V28) from Last 3 Months or Most [...] PM EDT Performed at: 01 - [facility] [address] [id number] Physical Therapist Center Manager: Lois Donaldson MD, Phone: [phone] Art Wyatt MD LAB BLOOD ORDERABLES Final Resu lt [facility] 1 from Last 3 Months or Most Recently Relevant to Health Maintenance Insurance MEDICARE [facility] [address] [place] [address] Care Teams Roll Mill Operator Relationship Specialty Start Date End Date Mp Louie MD PCP - General Internal Medicine 02/16/25
[2025-08-09 17:47] VITALS: BP 134/87; PULSE 90; RESP 18; TEMP 36.6; O2SAT 95
== END 2025-08-09 18:03 | disposition home or self-care (01) ==
PROVIDERS: Nurse Practitioner Family; Emergency Provider Emergency Medicine; PCP Internal Medicine
DX: S80.11XA Contusion of right lower leg, initial encounter (principal); R22.41 Localized swelling, mass and lump, right lower limb; Y29.XXXA Contact with blunt object, undetermined intent, initial encounter; Y93.9 Activity, unspecified; Y92.310 Basketball court as the place of occurrence of the external cause; Y99.8 Other external cause status; Z79.01 Long term (current) use of anticoagulants; Z79.899 Other long term (current) drug therapy
CPT/HCPCS: 10140; 36415; 76942; 80048; 85025; 85610; 99282; 99284

== ENCOUNTER 2025-08-11 10:50 | Emergency (ER) | payer MEDICARE, OTHER, SELFPAY ==
--- NOTE | 2025-08-11 11:18 | ED_ITS ---
HPI - Trauma General Chief Complaint: Wound/Laceration Stated Complaint: R Leg Hematoma Time Seen by Provider: 08/11/25 10:58 History of Present Illness ED Provider: haris HPI narrative: Patient comes for wound check she has a history of mitral and aortic valve replacement AFib on Coumadin. Related Data Previous Rx's ?Medication ?Instructions ?Recorded doxycycline hyclate 100 mg capsule 100 mg PO BID #14 c aps 10/03/24 cephalexin 500 mg capsule 500 mg PO QID 7 days #28 cap s 10/06/24 doxycycline hyclate 100 mg tablet 100 mg PO BID 7 days #14 tabs 08/09/25 Allergies Allergy/AdvReac Type Severity Reaction Status Date / Time acetaminophen (From TYLOX) Allergy Unknown HALLUCINATIONS, Verified 08/11/25 11:22 VOMITING chlorpheniramine (From Allergy Unknown HIVES Verified 08/11/25 11:22 CONTAC) guaifenesin (From CONTAC) Allergy Unknown HIVES Verified 08/11/25 11:22 ibuprofen (From MOTRIN) Allergy Unknown HEART Verified 08/11/25 11:22 PALPITATION From CONTAC Allergy Unknown HIVES Uncoded 10/06/24 11:20 From TYLOX Allergy Unknown HALLUCINATIONS, Uncoded 10/06/24 11:20 VOMITING PMFSH Social History Social History Smoked in Last 30 Days: No Use of substances other than those prescribed or required for medical reasons: No Advance Directives: Yes Advance Directives Information Provided: Yes Advance Directives on File: No Physical Exam 2 Exam: Exam: Well healing debrided hematoma see photo granulation tissue forming on the outside. No erythema. No active oozing or bleeding Vital Signs: Vital Signs: Last Vital Signs Temp 97.6 F 08/11/25 12:48 Pulse 74 08/11/25 12:48 Resp 18 08/11/25 12:48 BP 110/61 08/11/25 12:48 Pulse Ox 96 08/11/25 12:48 O2 Del Method Room Air 08/11/25 12:48 BMI result Body Mass Index 21.5 Medications Administered Discontinued Medications Generic Name Dose Route Start Last Admin Trade Name Freq PRN Reason Stop Dose Admin Enoxaparin Sodium 180 mg 08/11/25 11:50 08/11/25 12:33 Enoxaparin Sodium 100 Mg/Ml Syringe 1.5 mg/kg (180 mg) 08/11/25 11:51 Not Given SUBCUT ONCE ONE Enoxaparin Sodium 90 mg 08/11/25 12:17 08/11/25 12:33 Enoxaparin Sodium 100 Mg/Ml Syringe 1.5 mg/kg (90 mg) 08/11/25 12:18 90 mg SUBCUT Administration ONCE ONE Medical Decision Making Medical Decision Making MDM Narrative: [age] female status post hematoma with unroofing of the blister and debridement. No significant bleeding over the past 2 days. Well healing. Patient will need follow up in the Wound Care Clinic of which she is an established patient and told her to call 1st thing tomorrow morning to establish follow up with in the next week preferably the next 3-4 days. Subtherapeutic INR at 1.6 I will give her a 24 hour Lovenox dosing to bridge her to be sure she does not develop stroke Lab Data Labs: Lab Results 08/11/25 Range/Units 11:34 PT 18.1 H (10.9-12.4) SEC INR 1.6 H (0.9-1.1) Discharge Plan Discharge Clinical Impression: Avulsion of skin Patient Disposition: Home, Self-Care Instructions: Bone Bruise (ED) Additional Instructions: Continue the antibiotics. Keep the wound covered until your seen by wound clinic. Keep the leg elevated when you are able to. If you develop severe bleeding return back. Call the wound care clinic 1st thing Tuesday morning tell him it we we would like you to be seen in the next 3 days for establishing close regular follow up intervals for debridement and hematoma wound assessment you also need to call your Coumadin clinic we gave you a 24 hour dose of Lovenox because your INR was subtherapeutic at 1.6. Next few days we will be important to get your anticoagulation appropriate. Prescriptions: No Action cephalexin 500 mg capsule 500 mg PO QID 7 Days Qty: 28 0RF doxycycline hyclate 100 mg tablet 100 mg PO BID 7 Days Qty: 14 0RF doxycycline hyclate 100 mg capsule 100 mg PO BID Qty: 14 0RF Interventions: ED Discharge Assessment Last Done: 08/11/25 12:48 Discharge Date/Time: 08/11/25 12:55 Print Language: Swazi
[2025-08-11 11:20] VITALS: BP 110/61; PULSE 74; RESP 18; TEMP 36.4; O2SAT 96; BMI 21.5
--- OUTSIDE RECORDS SUMMARY | 2025-08-11 11:32 | XMS_ITS | Clinical Summary ---
Author Organization [facility] Address [address] [place] [address] Care Team Providers Care Rn Cvor Name Role Phone Neo Mederos MD Primary Care Provider [phone] Allergies Active Allergy Reactions Criticality Noted Date [...] age to complete this topic Care Teams Rn Cvor Relationship Specialty Start Date End Date Neo Mederos MD [address] [place] [address] PCP - General Pulmonary Disease 04/15/17
[2025-08-11 11:46] LABS: INTERNATIONAL NORM RATIO 1.6 (0.9-1.1); Prothrombin Time 18.1 SEC (10.9-12.4)
[2025-08-11 12:48] VITALS: BP 110/61; PULSE 74; RESP 18; TEMP 36.4; O2SAT 96
== END 2025-08-11 12:55 | disposition home or self-care (01) ==
PROVIDERS: Emergency Provider Emergency Medicine; PCP Internal Medicine
DX: S81.802A Unspecified open wound, left lower leg, initial encounter (principal); X58.XXXA Exposure to other specified factors, initial encounter; Y93.9 Activity, unspecified; Y92.9 Unspecified place or not applicable; Y99.8 Other external cause status; Z48.00 Encounter for change or removal of nonsurgical wound dressing; Z79.899 Other long term (current) drug therapy; Z51.81 Encounter for therapeutic drug level monitoring
CPT/HCPCS: 36415; 85610; 96372; 99283; 99284; J1650